=== PATIENT | female | born 1945 | race Hispanic/Latino ===

== ENCOUNTER 2019-01-14 14:22 | Emergency (ER) | payer MEDICAID, MEDICARE ==
[~2019-01-14] VITALS: Ht 149.9 cm; Wt 97.5 kg
[~2019-01-14 14:22] MED LIST: ASPIRIN LOW DOS81 MG PO; TRAMADOL HCL50 M1 PO; Z.0.DEXILANT60 MG PO; Z.0.GABAPENTIN600 MG PO; Z.0.LOSARTAN POTAS10 PO; Z.0.METOPROLOL TART2 PO; Z.0.SIMVASTATIN40 MG PO
--- OUTSIDE RECORDS SUMMARY | 2019-01-14 14:28 | XMS REPORT | Summary of Care ---
Author Author [facility] Primary Care [facility] Organization [facility] Address Unknown Phone Unavailable Encounter HQ Phu(FIN) [id number] Date(s): 01/20/18 - 01/21/18 [facility] [address], [address] [place], [place] [address]- [phone] Vital Signs No data available for this section Problem List Condition Effective Dates Status Health Status Informant Allergic Active rhinitis(Confirmed) Bilateral chronic Active knee pain(Confirmed) Benign essential 02/01/13 Active hypertension(Confirm ed)1 CAD (coronary artery Active disease)(Confirmed) Calcaneal spur2 08/15/13 Active Back pain, Active chronic(Confirmed) 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)3 Bilateral Active claudication of lower limb(Confirmed) Depression, Active major(Confirmed) Diabetes mellitus Active type 2, controlled, without complications(Confir med) Esophageal Active spasm(Confirmed) Drug induced Active constipation(Confirm ed) Sebaceous Active cyst(Confirmed) Reflux Active esophagitis(Confirme d) Medicare annual Active wellness visit, subsequent(Confirmed ) Mixed 02/01/13 Active hyperlipidemia(Confi rmed)4 Morbid 01/30/15 Active obesity(Confirmed)5 Grief(Confirmed) Active Polyarthralgia(Confi Active rmed) Osteoarthritis of 02/01/13 Active both knees(Confirmed)6 Osteopenia7 02/15/13 Active Osteoporosis(Confirm Active ed) Peripheral edema8 02/01/13 Active Peripheral Active neuropathy(Confirmed ) S/P PTCA Active (percutaneous transluminal coronary angioplasty)(Confirm ed) Screening for breast Active cancer(Confirmed) Seasonal allergic Active rhinitis(Confirmed) Left shoulder Active pain(Confirmed) Spinal stenosis of 02/01/13 Active lumbar region(Confirmed)9 Stricture of 05/16/13 Active esophagus(Confirmed) 10 Temporomandibular Active joint disorder (TMJ)(Confirmed) Encounter for Active immunization(Confirm ed) 1Data migrated from [employer] on 02/02/15. 2Data migrated from [employer] on 02/02/15. 3Data migrated from [employer] on 02/02/15. 4Data migrated from [employer] on 02/02/15. 5Data migrated from [employer] on 03/13/15. 6Data migrated from [employer] on 02/02/15. 7Data migrated from [employer] on 02/02/15. 8Data migrated from [employer] on 02/02/15. 9Data migrated from [employer] on 02/02/15. 10Data migrated from [employer] on 02/02/15. Allergies, Adverse Reactions, Alerts Substance Reaction Severity Status angiotensin converting patient cannot remember reaction Active enzyme inhibitors1, 2 gabapentin made her feel bad Active 1Data migrated from [employer] on 04/05/15. Originally documented as BRITT INHIBITORS. Does not remember 2Data migrated from [employer] on 04/04/15. Originally documented as BRITT INHIBITORS. Does not remember Medications No data available for this section Results No data available for this section Immunizations Given and Recorded Vaccine Date Status Refusal Reason influenza virus vaccine, inactivated 04/28/17 Given influenza virus vaccine, inactivated 07/03/16 Given influenza virus vaccine, inactivated 06/05/15 Given influenza virus vaccine, inactivated1 07/05/14 Given influenza virus vaccine, inactivated2 07/26/13 Given Hx influenza vaccine-unspecified3 05/10/14 Given pneumococcal 23-valent vaccine4 10/18/13 Given 1Result Comment: fluzone high dose [[id number]]. Migrated from OBS ; Data migrated from [employer] on 10/08/2015. 2Result Comment: fluzone (>3 yrs.) [[id number]]. Migrated from OBS ; Data migrated from [employer] on 10/08/2015. 3Result Comment: done. Migrated from OBS ; Data migrated from [employer] on 10/08/2015. 4Result Comment: pneumovax 23 [cvx33]. Migrated from OBS VIS: Pneumovax 23: 06/11/09 ; Data migrated from [employer] on 10/08/2015. Procedures Procedure Date Related Diagnosis Body Site Status Myocardial perfusion scan1 01/12/17 Completed Esophagogastroduodenoscopy2 12/28/16 Completed Screening mammography3 12/04/16 Completed Esophagogastroduodenoscopy4 11/10/16 Completed Excision of mass from thigh 10/09/16 Completed Bone density scan5 05/02/15 Completed Esophageal motility study6 06/06/14 Completed Esophagogastroduodenoscopy7 01/03/14 Completed Colonoscopy 2013 Completed Arthroscopy of knee 07/11/13 Completed Cardiac catheterization Completed Cholecystectomy Completed Stevo fundoplication Completed PTCA - Percutaneous transluminal coronary Completed angioplasty8 Radiofrequency ablation of nerve root of Completed lumbar spine using fluoroscopic guidance Repair of rectovaginal fistula Completed Suspension of bladder Completed 1normal 2Esophagitis, nutcracker esophagus 3IMPRESSION: BENIGN There is no mammographic evidence of malignancy. A 1 year screening mammogram i s recommended. 4schatzki's ring was dilated, nonerozive gastritis, diminutive hiatal hernia 5IMPRESSION: 1. Bone mineral density of the lumbar spine is within normal limits. There is in terval increase in density. 2. Bone mineral density of the left hip is consistent with osteopenia and increa sed fracture risk. There is interval increase in density. 6Esophageal spasm c/w Nutcracker esophagus 7hiatal hernia, stenotic upper esophageal stricture s/p dilatation [id number] Social History Social History Type Response Substance Abuse Use: None. Exercise Exercise type: none. Alcohol Past, Type Liquor. Frequency: 1-2 times per year. Smoking Status Never smoker; Exposure to Tobacco Smoke None; Cigarette Smoking Last 365 Days No; Reg Smoking Cessation Counseling Yes entered on: 12/02/17 Assessment and Plan No data available for this section
--- OUTSIDE RECORDS SUMMARY | 2019-01-14 14:28 | XMS REPORT | Summary of Care ---
Author Author [facility] Primary [facility] Organization [facility] Address Unknown Phone Unavailable Encounter HQ Soto_erwin(FIN) [id number] Date(s): 05/17/18 - 05/18/18 [facility] [address] [place] [address]- Vital Signs No data available for this section Problem List Condition Effective Dates Status Health Status Informant Allergic Active rhinitis(Confirmed) Bilateral chronic Active knee pain(Confirmed) Benign essential 02/01/13 Active hypertension(Confirm ed)1 CAD (coronary artery Active disease)(Confirmed) Back pain, Active chronic(Confirmed) 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)2 Bilateral Active claudication of lower limb(Confirmed) Acute Active nasopharyngitis(Conf irmed) Depression, Active major(Confirmed) Diabetes mellitus Active type 2, controlled, without complications(Confir med) Esophageal Active spasm(Confirmed) Drug induced Active constipation(Confirm ed) Reflux Active esophagitis(Confirme d) Headache(Confirmed) Active Medicare annual Active wellness visit, subsequent(Confirmed ) Mixed 02/01/13 Active hyperlipidemia(Confi rmed)3 Morbid 01/30/15 Active obesity(Confirmed)4 Polyarthralgia(Confi Active rmed) Osteoarthritis of 02/01/13 Active both knees(Confirmed)5 Osteopenia6 02/15/13 Active Osteoporosis(Confirm Active ed) Peripheral edema7 02/01/13 Active Peripheral Active neuropathy(Confirmed ) RAD (reactive airway Active disease)(Confirmed) S/P PTCA Active (percutaneous transluminal coronary angioplasty)(Confirm ed) Screening for breast Active cancer(Confirmed) Seasonal allergic Active rhinitis(Confirmed) Left shoulder Active pain(Confirmed) Spinal stenosis of 02/01/13 Active lumbar region(Confirmed)8 Stricture of 05/16/13 Active esophagus(Confirmed) 9 Temporomandibular Active joint disorder (TMJ)(Confirmed) Encounter for Active immunization(Confirm ed) 1Data migrated from [employer] on 02/02/15. 2Data migrated from [employer] on 02/02/15. 3Data migrated from [employer] on 02/02/15. 4Data migrated from [employer] on 03/13/15. 5Data migrated from [employer] on 02/02/15. 6Data migrated from [employer] on 02/02/15. 7Data migrated from [employer] on 02/02/15. 8Data migrated from [employer] on 02/02/15. 9Data migrated from [employer] on 02/02/15. Allergies, Adverse Reactions, Alerts Substance Reaction Severity Status angiotensin converting patient cannot remember reaction Active enzyme inhibitors1, 2 gabapentin made her feel bad Active 1Data migrated from [employer] on 04/05/15. Originally documented as BRITT INHIBITORS. Does not remember 2Data migrated from [employer] on 04/04/15. Originally documented as BRITT INHIBITORS. Does not remember Medications Dexilant 60 mg oral delayed release capsule 60 mg=1 cap, PO, Daily, # 90 cap, 1 Refill(s), Pharmacy: [facility] 05 733 Start Date: 11/13/18 Stop Date: 02/10/19 Status: Ordered Dexilant 60 mg oral delayed release capsule 60 mg=1 cap, PO, Daily, # 90 cap, 1 Refill(s), Pharmacy: [facility] 05 733 Start Date: 05/17/18 Stop Date: 08/15/18 Status: Ordered DULoxetine 20 mg oral delayed release capsule =1 cap, PO, Daily, # 90 cap, 1 Refill(s), Pharmacy: [facility] [id number] Start Date: 11/13/18 Stop Date: 02/10/19 Status: Ordered DULoxetine 20 mg oral delayed release capsule 20 mg=1 cap, PO, Daily, # 90 cap, 1 Refill(s), Pharmacy: [facility] 05 733 Start Date: 05/17/18 Stop Date: 11/13/18 Status: Completed Results No data available for this section Immunizations Given and Recorded Vaccine Date Status Refusal Reason influenza virus vaccine, inactivated1 07/08/18 Given influenza virus vaccine, inactivated 04/28/17 Given influenza virus vaccine, inactivated 07/03/16 Given influenza virus vaccine, inactivated 06/05/15 Given influenza virus vaccine, inactivated2 07/05/14 Given influenza virus vaccine, inactivated3 07/26/13 Given Hx influenza vaccine-unspecified4 05/10/14 Given pneumococcal 23-valent vaccine5 10/18/13 Given 1Result Comment: Patient waited 15 min with no reaction. 2Result Comment: fluzone high dose [[id number]]. Migrated from OBS ; Data migrated from [employer] on 10/08/2015. 3Result Comment: fluzone (>3 yrs.) [[id number]]. Migrated from OBS ; Data migrated from [employer] on 10/08/2015. 4Result Comment: done. Migrated from OBS ; Data migrated from [employer] on 10/08/2015. 5Result Comment: pneumovax 23 [cvx33]. Migrated from OBS VIS: Pneumovax 23: 06/11/09 ; Data migrated from [employer] on 10/08/2015. Procedures Procedure Date Related Diagnosis Body Site Status Influenza vaccination 07/08/18 Completed Bone density scan1 02/15/18 Completed Screening mammography of bilateral breasts2 02/15/18 Completed Diabetic retinal eye exam3 11/2017 Completed Myocardial perfusion scan4 01/12/17 Completed Esophagogastroduodenoscopy5 12/28/16 Completed Screening mammography6 12/04/16 Completed Esophagogastroduodenoscopy7 11/10/16 Completed Excision of mass from thigh 10/09/16 Completed Bone density scan8 05/02/15 Completed Esophageal motility study9 06/06/14 Completed Euxsrafqixncbccrdnhafcnerw77 01/03/14 Completed Colonoscopy 2013 Completed Arthroscopy of knee 07/11/13 Completed Pneumococcal efppydzckps40 10/17/12 Completed Cardiac catheterization Completed Cholecystectomy Completed Stevo fundoplication Completed PTCA - Percutaneous transluminal coronary Completed dmpmzhqdipk85 Radiofrequency ablation of nerve root of Completed lumbar spine using fluoroscopic guidance Repair of rectovaginal fistula Completed Suspension of bladder Completed 1IMPRESSION: 1. Osteopenia of the left femoral neck. 2. Normal bone mineral density of the total left hip. 3. Normal bone mineral density of the lumbar spine. 2IMPRESSION: BENIGN RECOMMENDATION:There is no mammographic evidence of malignancy. A 1 year screeni ng mammogram is recommended.(02/16/2019) 3[facility] 4normal 5Esophagitis, nutcracker esophagus 6IMPRESSION: BENIGN There is no mammographic evidence of malignancy. A 1 year screening mammogram i s recommended. 7schatzki's ring was dilated, nonerozive gastritis, diminutive hiatal hernia 8IMPRESSION: 1. Bone mineral density of the lumbar spine is within normal limits. There is in terval increase in density. 2. Bone mineral density of the left hip is consistent with osteopenia and increa sed fracture risk. There is interval increase in density. 9Esophageal spasm c/w Nutcracker esophagus 10hiatal hernia, stenotic upper esophageal stricture s/p dilatation 11Pneumovax [id number] Social History Social History Type Response Substance Abuse Use: None. Exercise Exercise type: none. Alcohol Past, Type Liquor. Frequency: 1-2 times per year. Smoking Status Never smoker; Exposure to Tobacco Smoke None; Cigarette Smoking Last 365 Days No; Reg Smoking Cessation Counseling Yes entered on: 07/08/18 Assessment and Plan No data available for this section
--- OUTSIDE RECORDS SUMMARY | 2019-01-14 14:28 | XMS REPORT | Summary of Care ---
Author Author [facility] Organization [facility] Address Unknown Phone Unavailable Encounter HQ Phu(FIN) [id number] Date(s): 02/16/18 - 02/16/18 [facility] [address], [address] [place] [address] [phone] Discharge Disposition: Home or Self Care Attending Physician: Emeli Torres MD Vital Signs Most recent to 1 oldest [Reference Range]: Height 152.4 cm (02/16/18 1:58 PM) Temperature Oral 97.5 DegF [96.4-99.1 DegF] (02/16/18 1:58 PM) Blood Pressure 135/89 mmHg [90-140/60-90 mmHg] (02/16/18 1:58 PM) Respiratory Rate 16 BRMIN [14-20 BRMIN] (02/16/18 1:58 PM) Peripheral Pulse 75 bpm Rate [60-100 bpm] (02/16/18 1:58 PM) Weight 90.682 kg (02/16/18 1:58 PM) Body Mass Index 39.04 m2 (02/16/18 1:58 PM) Problem List Condition Effective Dates Status Health Status Informant Bilateral chronic Active knee pain(Confirmed) Benign essential 02/01/13 Active hypertension(Confirm ed)1 CAD (coronary artery Active disease)(Confirmed) Back pain, Active chronic(Confirmed) 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 Does not remember Medications Cheratussin AC oral syrup 5 ml, PO, Q6H, PRN for cough and congestion, # 120 mL, 0 Refill(s) Start Date: 02/16/18 Stop Date: 02/16/19 Status: Ordered ProAir HFA 90 mcg/inh inhalation aerosol with adapter 2 puff, INHALER, Q6H, PRN wheezing, coughing, or shortness of breath, # 1 ea, 0 Refill(s), [id number] Start Date: 02/16/18 Stop Date: 02/16/18 Status: Discontinued Ventolin HFA 90 mcg/inh inhalation aerosol with adapter 2 puff, INHALER, Q6H, PRN wheezing, coughing, or shortness of breath, # 1 ea, 0 Refill(s), called to pharmacy Start Date: 02/16/18 Status: Ordered Results No data available for this section Immunizations Given and Recorded Vaccine Date Status Refusal Reason influenza virus vaccine, inactivated 04/28/17 Given influenza virus vaccine, inactivated 07/03/16 Given influenza virus vaccine, inactivated 06/05/15 Given influenza virus vaccine, inactivated1 07/05/14 Given influenza virus vaccine, inactivated2 07/26/13 Given Hx influenza vaccine-unspecified3 05/10/14 Given pneumococcal 23-valent vaccine4 10/18/13 Given 1Result Comment: fluzone high dose [[id number]]. Migrated from OBS ; Data migrated from [employer] on 10/08/2015. 2Result Comment: fluzone (>3 yrs.) [[id number]]. Migrated from OBS ; Data migrated from [employer] on 10/08/2015. 3Result Comment: done. Migrated from OBS ; Data migrated from [employer] on 10/08/2015. 4Result Comment: pneumovax 23 [cvx33]. Migrated from OBS VIS: Pneumovax 23: 06/11/09 ; Data migrated from [employer] on 10/08/2015. Procedures Procedure Date Related Diagnosis Body Site Status Bone density scan1 02/15/18 Completed Screening mammography of bilateral breasts2 02/15/18 Completed Diabetic retinal eye exam3 11/2017 Completed Influenza vaccination 04/28/17 Completed Myocardial perfusion scan4 01/12/17 Completed Esophagogastroduodenoscopy5 12/28/16 Completed Screening mammography6 12/04/16 Completed Esophagogastroduodenoscopy7 11/10/16 Completed Excision of mass from thigh 10/09/16 Completed Bone density scan8 05/02/15 Completed Esophageal motility study9 06/06/14 Completed Ykslbiezubapezlgnyybyvvidq62 01/03/14 Completed Colonoscopy 2013 Completed Arthroscopy of knee 07/11/13 Completed Pneumococcal uvcrvdceufl36 10/17/12 Completed Cardiac catheterization Completed Cholecystectomy Completed Stevo fundoplication Completed PTCA - Percutaneous transluminal coronary Completed qedyvzafhsz86 Radiofrequency ablation of nerve root of Completed [...] stenotic upper esophageal stricture s/p dilatation 11Pneumovax [id number] Social History Social History Type Response Substance Abuse Use: None. Exercise Exercise type: none. Alcohol Past, Type Liquor. Frequency: 1-2 times per year. Smoking Status Never smoker; Exposure to Tobacco Smoke None; Cigarette Smoking Last 365 Days No; Reg Smoking Cessation Counseling Yes entered on: 02/16/18 Assessment and Plan No data available for this section
--- OUTSIDE RECORDS SUMMARY | 2019-01-14 14:28 | XMS REPORT | Summary of Care ---
Author Author [facility] Primary Care [facility] Organization [facility] Address Unknown Phone Unavailable Encounter HQ Phu(FIN) [id number] Date(s): 01/20/18 - 01/21/18 [facility] [address], [address] [place], [place] [address]- [phone] Vital Signs No data available for this [...] 10/18/13 Given 1Result Comment: fluzone high dose [[id number]]. Migrated from OBS ; Data migrated from [employer] on 10/08/2015. 2Result Comment: fluzone (>3 yrs.) [[id number]]. Migrated from OBS ; Data migrated from [...] hernia, stenotic upper esophageal stricture s/p dilatation 43736 Social History Social History Type Response Substance Abuse Use: None. Exercise Exercise type: none. Alcohol Past, Type Liquor. Frequency: 1-2 times per year. Smoking Status Never smoker; Exposure to Tobacco Smoke None; Cigarette Smoking Last 365 Days No; Reg Smoking Cessation Counseling Yes entered on: 12/02/17 Assessment and Plan No data available for this section
--- OUTSIDE RECORDS SUMMARY | 2019-01-14 14:28 | XMS REPORT | Summary of Care ---
Author Author [facility] Organization [facility] Address Unknown Phone Unavailable Encounter HQ Phu(FIN) [id number] Date(s): 12/02/17 - 12/02/17 [facility] [address], [address] [place] [address]- [phone] Discharge Disposition: Home or Self Care Attending Physician: Emeli Torres MD Vital Signs Most recent to 1 oldest [Reference Range]: Height 149.86 cm (12/02/17 9:55 AM) Temperature Oral 98.7 DegF [96.4-99.1 DegF] (12/02/17 9:55 AM) Blood Pressure 131/73 mmHg [90-140/60-90 mmHg] (12/02/17 9:55 AM) Respiratory Rate 16 BRMIN [14-20 BRMIN] (12/02/17 9:55 AM) Peripheral Pulse 57 bpm Rate [60-100 bpm] *LOW* (12/02/17 9:55 AM) Weight 93.239 kg (12/02/17 9:55 AM) Body Mass Index 41.52 m2 (12/02/17 9:55 AM) Problem List Condition Effective Dates Status Health [...] as BRITT INHIBITORS. Does not remember Medications Home Medication Turmero (K-75), Refill(s) 0 Start Date: 12/02/17 Status: Ordered Results No data available for this section Immunizations Given and Recorded Vaccine Date Status Refusal Reason influenza virus vaccine, inactivated 04/28/17 Given influenza virus vaccine, inactivated 07/03/16 Given influenza virus vaccine, inactivated 06/05/15 Given influenza virus vaccine, inactivated1 07/05/14 Given influenza virus vaccine, inactivated2 07/26/13 Given Hx influenza vaccine-unspecified3 05/10/14 Given pneumococcal 23-valent vaccine4 10/18/13 Given 1Result Comment: fluzone high dose [[id number]]. Migrated from OBS ; Data migrated from [employer] on 10/08/2015. 2Result Comment: fluzone (>3 yrs.) [[id number]]. Migrated from OBS ; Data migrated from [employer] on 10/08/2015. 3Result Comment: done. Migrated from OBS ; Data migrated from [employer] on 10/08/2015. 4Result Comment: pneumovax 23 [cvx33]. Migrated from OBS VIS: Pneumovax 23: 06/11/09 ; Data migrated from [employer] on 10/08/2015. Procedures Procedure Date Related Diagnosis [...] hernia, stenotic upper esophageal stricture s/p dilatation 52633 Social History Social History Type Response Substance Abuse Use: None. Exercise Exercise type: none. Alcohol Past, Type Liquor. Frequency: 1-2 times per year. Smoking Status Never smoker; Exposure to Tobacco Smoke None; Cigarette Smoking Last 365 Days No; Reg Smoking Cessation Counseling Yes entered on: 12/02/17 Assessment and Plan No data available for this section
--- OUTSIDE RECORDS SUMMARY | 2019-01-14 14:28 | XMS REPORT | Summary of Care ---
Author Author [facility] Primary Care [facility] Organization [facility] Address Unknown Phone Unavailable Encounter HQ Phu(FIN) [id number] Date(s): 01/25/18 - 01/26/18 [facility] [address], [address] [place], [place] [address]- [phone] Vital Signs No data available for this [...] as BRITT INHIBITORS. Does not remember Medications Metoprolol Tartrate 25 mg oral tablet 25 mg=1 tab, PO, Daily, # 90 tab, 1 Refill(s), Pharmacy: [facility] 05 [id number] Start Date: 01/25/18 Stop Date: 04/25/18 Status: Ordered Results No data available for this section Immunizations Given and Recorded Vaccine Date Status Refusal Reason influenza virus vaccine, inactivated 04/28/17 Given influenza virus vaccine, inactivated 07/03/16 Given influenza virus vaccine, inactivated 06/05/15 Given influenza virus vaccine, inactivated1 07/05/14 Given influenza virus vaccine, inactivated2 07/26/13 Given Hx influenza vaccine-unspecified3 05/10/14 Given pneumococcal 23-valent vaccine4 10/18/13 Given 1Result Comment: fluzone high dose [[id number]]. Migrated from OBS ; Data migrated from [employer] on 10/08/2015. 2Result Comment: fluzone (>3 yrs.) [[id number]]. Migrated from OBS ; Data migrated from [employer] on 10/08/2015. 3Result Comment: done. Migrated from OBS ; Data migrated from [employer] on 10/08/2015. 4Result Comment: pneumovax 23 [cvx33]. Migrated from OBS VIS: Pneumovax 23: 06/11/09 ; Data migrated from [employer] on 10/08/2015. Procedures Procedure Date Related Diagnosis [...] hernia, stenotic upper esophageal stricture s/p dilatation 34093 Social History Social History Type Response Substance Abuse Use: None. Exercise Exercise type: none. Alcohol Past, Type Liquor. Frequency: 1-2 times per year. Smoking Status Never smoker; Exposure to Tobacco Smoke None; Cigarette Smoking Last 365 Days No; Reg Smoking Cessation Counseling Yes entered on: 12/02/17 Assessment and Plan No data available for this section
--- OUTSIDE RECORDS SUMMARY | 2019-01-14 14:28 | XMS REPORT | Summary of Care ---
Author Author [facility] Organization [facility] Address Unknown Phone Unavailable Encounter HQ Soto_erwin(FIN) [id number] Date(s): 07/22/17 - 07/22/17 [facility] [address], [address] [place] [address]- [phone] Discharge Disposition: Home or Self Care Attending Physician: Emeli Torres MD Vital Signs Most recent to 1 2 oldest [Reference Range]: Height 149.86 cm (07/22/17 10:03 AM) Temperature Oral 97.3 DegF [96.4-99.1 DegF] (07/22/17 10:03 AM) Blood Pressure 138/85 mmHg 146/94 mmHg [90-140/60-90 mmHg] (07/22/17 10:45 AM) *HI* (07/22/17 10:03 AM) Respiratory Rate 16 BRMIN [14-20 BRMIN] (07/22/17 10:03 AM) Peripheral Pulse 74 bpm Rate [60-100 bpm] (07/22/17 10:03 AM) Weight 97.273 kg (07/22/17 10:03 AM) Body Mass Index 43.31 m2 (07/22/17 10:03 AM) Problem List Condition Effective Dates Status Health Status Informant Acute upper Active respiratory infection(Confirmed) Bilateral chronic Active knee pain(Confirmed) Upper back pain on Active right side(Confirmed) Benign essential 02/01/13 Active hypertension(Confirm ed)1 CAD (coronary artery Active disease)(Confirmed) Calcaneal spur2 08/15/13 Active Back pain, Active chronic(Confirmed) 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 Bilateral Active claudication of lower limb(Confirmed) Depression, Active major(Confirmed) Diabetes mellitus Active type 2, controlled, without complications(Confir med) Esophageal Active spasm(Confirmed) Drug induced Active constipation(Confirm ed) Sebaceous Active cyst(Confirmed) Reflux Active esophagitis(Confirme d) Medicare annual Active wellness visit, subsequent(Confirmed ) Mixed 02/01/13 Active hyperlipidemia(Confi rmed)4 Morbid 01/30/15 Active obesity(Confirmed)5 Grief(Confirmed) Active Polyarthralgia(Confi Active rmed) Osteoarthritis of 02/01/13 Active both knees(Confirmed)6 Osteopenia7 02/15/13 Active Peripheral edema8 02/01/13 Active Peripheral Active neuropathy(Confirmed ) S/P PTCA Active (percutaneous transluminal coronary angioplasty)(Confirm ed) Seasonal allergic Active rhinitis(Confirmed) Left shoulder Active [...] as [employer]. Does not remember Medications DULoxetine 20 mg oral delayed release capsule 20 mg=1 cap, PO, Daily, # 30 cap, 3 Refill(s), Pharmacy: [facility] [id number], Dose decreased Start Date: 07/22/17 Status: Ordered Lyrica 300 mg oral capsule 300 mg=1 cap, PO, Daily, # 90 cap, 1 Refill(s) Start Date: 07/22/17 Status: Ordered Results No data available for this section Immunizations Given and Recorded Vaccine Date Status Refusal Reason influenza virus vaccine, inactivated 04/28/17 Given influenza virus vaccine, inactivated 07/03/16 Given influenza virus vaccine, inactivated 06/05/15 Given influenza virus vaccine, inactivated1 07/05/14 Given influenza virus vaccine, inactivated2 07/26/13 Given Hx influenza vaccine-unspecified3 05/10/14 Given pneumococcal 23-valent vaccine4 10/18/13 Given 1Result Comment: fluzone high dose [[id number]]. Migrated from OBS ; Data migrated from [employer] on 10/08/2015. 2Result Comment: fluzone (>3 yrs.) [[id number]]. Migrated from OBS ; Data migrated from [employer] on 10/08/2015. 3Result Comment: done. Migrated from OBS ; Data migrated from [employer] on 10/08/2015. 4Result Comment: pneumovax 23 [[id number]]. Migrated from OBS VIS: Pneumovax 23: 06/11/09 ; Data migrated from [employer] on 10/08/2015. Procedures Procedure Date Related Diagnosis Body Site Myocardial perfusion scan1 01/12/17 Esophagogastroduodenoscopy2 12/28/16 Screening mammography3 12/04/16 Esophagogastroduodenoscopy4 11/10/16 Excision of mass from thigh 10/09/16 Bone density scan5 05/02/15 Esophageal motility study6 06/06/14 Esophagogastroduodenoscopy7 01/03/14 Colonoscopy 2013 Arthroscopy of knee 07/11/13 Cardiac catheterization Cholecystectomy Stevo fundoplication PTCA - Percutaneous transluminal coronary angioplasty8 Radiofrequency ablation of nerve root of lumbar spine using fluoroscopic guidance Repair of rectovaginal fistula Suspension of bladder 1normal 2Esophagitis, nutcracker esophagus 3IMPRESSION: BENIGN There [...] hernia, stenotic upper esophageal stricture s/p dilatation [id number] Social History Social History Type Response Substance Abuse Use: None. Exercise Exercise type: none. Alcohol Past, Type Liquor. Frequency: 1-2 times per year. Smoking Status Never smoker; Exposure to Tobacco Smoke None; Cigarette Smoking Last 365 Days No; Reg Smoking Cessation Counseling Yes Assessment and Plan No data available for this section
--- OUTSIDE RECORDS SUMMARY | 2019-01-14 14:28 | XMS REPORT | Summary of Care ---
Author Author [facility] Organization [facility] Address Unknown Phone Unavailable Encounter HQ Phu(FIN) [id number] Date(s): 02/15/18 - 02/15/18 [facility] [address] [place] [address]- [phone] Discharge Disposition: Home or Self Care Attending Physician: Emeli Torres MD Referring Physician: Emeli Torres MD Vital Signs No data available for this [...] 10/18/13 Given 1Result Comment: fluzone high dose [[id number]]. Migrated from OBS ; Data migrated from [employer] on 10/08/2015. 2Result Comment: fluzone (>3 yrs.) [[id number]]. Migrated from OBS ; Data migrated from [...] 05/02/15 Completed Esophageal motility study9 06/06/14 Completed [id number] 01/03/14 Completed Colonoscopy 2013 Completed Arthroscopy of knee 07/11/13 Completed Pneumococcal [id number] 10/17/12 Completed Cardiac catheterization Completed Cholecystectomy Completed Stevo fundoplication Completed PTCA - Percutaneous transluminal coronary Completed [id number] Radiofrequency ablation of nerve root of Completed [...] stenotic upper esophageal stricture s/p dilatation 11Pneumovax [id number] Social History Social History Type Response Substance Abuse Use: None. Exercise Exercise type: none. Alcohol Past, Type Liquor. Frequency: 1-2 times per year. Smoking Status Never smoker; Exposure to Tobacco Smoke None; Cigarette Smoking Last 365 Days No; Reg Smoking Cessation Counseling Yes entered on: 02/16/18 Assessment and Plan No data available for this section
--- OUTSIDE RECORDS SUMMARY | 2019-01-14 14:28 | XMS REPORT | Summary of Care ---
Author Author [facility] Care [facility] Organization [facility] Address Unknown Phone Unavailable Care Team Providers Care Transaction Manager Name Role Phone Emeli Torres PCP Encounter HQ Izabellar_erwin(FIN) [id number] Date(s): 01/09/19 - 01/09/19 [facility] [address] [place] [address]- Discharge Disposition: Home or Self Care Attending Physician: Emeli Torres MD Vital Signs Most recent to 1 oldest [Reference Range]: Height 152.4 cm (01/09/19 2:00 PM) Temperature Oral 97.8 DegF [96.4-99.1 DegF] (01/09/19 2:00 PM) Blood Pressure 148/81 mmHg [90-140/60-90 mmHg] *HI* (01/09/19 2:00 PM) Respiratory Rate 16 BRMIN [14-20 BRMIN] (01/09/19 2:00 PM) Peripheral Pulse 64 bpm Rate [60-100 bpm] (01/09/19 2:00 PM) Weight 98.864 kg (01/09/19 2:00 PM) Body Mass Index 42.57 m2 (01/09/19 2:00 PM) Problem List Condition Effective Dates Status Health Status Informant Allergic Active rhinitis(Confirmed) Benign essential 02/01/13 Active hypertension(Confirm ed)1 CAD (coronary artery Active disease)(Confirmed) Back pain, Active chronic(Confirmed) 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)2 Depression, Active major(Confirmed) Diabetes mellitus Active type 2, controlled, without complications(Confir med) Esophageal Active spasm(Confirmed) Tendinopathy of left Active shoulder(Confirmed) Drug induced Active constipation(Confirm ed) Reflux Active esophagitis(Confirme d) Medicare annual Active wellness visit, subsequent(Confirmed ) Mixed 02/01/13 Active hyperlipidemia(Confi rmed)3 Morbid 01/30/15 Active obesity(Confirmed)4 Osteoarthritis of 02/01/13 Active both knees(Confirmed)5 Osteopenia6 02/15/13 Active Osteoporosis(Confirm Active ed) Peripheral Active neuropathy(Confirmed ) RAD (reactive airway Active disease)(Confirmed) S/P PTCA Active (percutaneous transluminal coronary angioplasty)(Confirm ed) Screening for breast Active cancer(Confirmed) Seasonal allergic Active rhinitis(Confirmed) Spinal stenosis of 02/01/13 Active lumbar region(Confirmed)7 Stricture of 05/16/13 Active esophagus(Confirmed) 8 Encounter for Active immunization(Confirm ed) 1Data migrated from [employer] on 02/02/15. 2Data migrated from [employer] on 02/02/15. 3Data migrated from [employer] on 02/02/15. 4Data migrated from [employer] on 03/13/15. 5Data migrated from [employer] on 02/02/15. 6Data migrated from [employer] on 02/02/15. 7Data migrated from [employer] on 02/02/15. 8Data migrated from [employer] on 02/02/15. Allergies, Adverse Reactions, Alerts Substance Reaction Severity Status angiotensin converting patient cannot remember reaction Active enzyme inhibitors1, 2 gabapentin made her feel bad Active 1Data migrated from [employer] on 04/05/15. Originally documented as [employer]. Does not remember 2Data migrated from [employer] on 04/04/15. Originally documented as [employer]. Does not remember Medications diclofenac sodium 75 mg oral enteric coated, delayed-release tablet 75 mg=1 tab, PO, BID, PRN Pain, # 40 tab, 0 Refill(s), Pharmacy: [id number] Start Date: 01/11/19 Status: Ordered Voltaren Topical 1% topical gel 4 gm, TOP, TID, PRN for pain, # 100 gm, 1 Refill(s), Pharmacy: [id number] Start Date: 01/09/19 Status: Ordered Results No data available for [...] no reaction. 2Result Comment: fluzone high dose [[id number]]. Migrated from OBS ; Data migrated from [employer] on 10/08/2015. 3Result Comment: fluzone (>3 yrs.) [[id number]]. Migrated from OBS ; Data migrated from [...] 05/02/15 Completed Esophageal motility study9 06/06/14 Completed [id number] 01/03/14 Completed Colonoscopy 2013 Completed Arthroscopy of knee 07/11/13 Completed Pneumococcal [id number] 10/17/12 Completed Cardiac catheterization Completed Cholecystectomy Completed Stevo fundoplication Completed PTCA - Percutaneous transluminal coronary Completed [id number] Radiofrequency ablation of nerve root of Completed [...] stenotic upper esophageal stricture s/p dilatation 11Pneumovax [id number] Social History Social History Type Response Substance Abuse Use: None. Exercise Exercise type: none. Alcohol Past, Type Liquor. Frequency: 1-2 times per year. Smoking Status Never smoker; Exposure to Tobacco Smoke None; Cigarette Smoking Last 365 Days No; Reg Smoking Cessation Counseling Yes entered on: 01/09/19 Assessment and Plan No data available for this section
--- OUTSIDE RECORDS SUMMARY | 2019-01-14 14:28 | XMS REPORT | Continuity of Care Document ---
Author Author [facility] Interface Address Unknown Phone Unavailable Problems Problem Status Onset Date Classification Date Reported Comments Source M81.0 Active 01/20/2018 [facility] ROUTINE Active 12/18/2017 [facility] UNK Active 10/29/2016 [facility] DX: ROUTINE SCREENING Active 10/28/2016 [facility] SCREENING Active 10/14/2015 [facility] Z12.31 - ENCNTR SCREEN MAMMOGRAM FOR MA Active 10/11/2015 [facility] [place] Discharge Diagnosis: Generalized headache 06/09/2015 06/12/2015 [facility] Discharge Diagnosis: Hypertension 06/09/2015 06/12/2015 [facility] BP Active 06/09/2015 [facility] 722.52 - LUMB/LUMBOSAC D Active 05/27/2015 [facility] [place] OSTEO Active 05/02/2015 [facility] Morbid obesity<sup>5</sup> Active 01/30/2015 Problem 01/29/2018 Data migrated from [employer] on 03/13/15. [facility] Morbid obesity<sup>19</sup> Active 01/30/2015 Problem 05/05/2015 Data migrated from [employer] on 03/13/15. [facility] Temporomandibular xffuq-gkan-khxiwnuhaij syndrome<sup>29</sup> Active 01/30/2015 Problem 05/05/2015 Data migrated from [employer] on 03/13/15. [facility] Morbid obesity<sup>4</sup> Active 01/30/2015 Problem 01/11/2019 Data migrated from [employer] on 03/13/15. [facility] Morbid obesity<sup>8</sup> Active 01/30/2015 Problem 10/28/2015 Data migrated from [employer] on 03/13/15. [facility] [place] Morbid obesity<sup>6</sup> Active 01/30/2015 Problem 11/27/2016 Data migrated from [employer] on 03/13/15. [facility] Acute bronchitis<sup>2, 3</sup> Active 10/04/2014 Problem 05/05/2015 Data migrated from [employer] on 02/05/15. [facility] ABDOMINAL PAIN Active 07/18/2014 [facility] Abdominal pain<sup>1</sup> Active 07/09/2014 Problem 05/05/2015 Data migrated from [employer] on 02/02/15. [facility] Low back pain<sup>17</sup> Active 07/05/2014 Problem 05/05/2015 Data migrated from [employer] on 02/02/15. [facility] 401.9/V65.3/787.20/530.81 Active 06/04/2014 [facility] Bereavement<sup>9</sup> Active 05/10/2014 Problem 05/05/2015 Data migrated from [employer] on 02/02/15. [facility] Bereavement<sup>3</sup> Resolved 05/10/2014 Problem 10/28/2015 Data migrated from [employer] on 02/02/15. [facility], [facility] [place] V65.3/401.9/530.81/787.20 Active 12/27/2013 [facility] Hip pain<sup>15</sup> Active 12/15/2013 Problem 05/05/2015 Data migrated from [employer] on 02/02/15. [facility] V65.3 DIETARY COUNSELING 401.9 BP (HIGH Active 12/07/2013 [facility] Calcaneal spur<sup>2</sup> Active 08/15/2013 Problem 01/29/2018 Data migrated from [employer] on 02/02/15. [facility] Calcaneal spur<sup>10</sup> Active 08/15/2013 Problem 05/05/2015 Data migrated from [employer] on 02/02/15. [facility] Calcaneal spur<sup>4</sup> Active 08/15/2013 Problem 10/28/2015 Data migrated from [employer] on 02/02/15. [facility], [facility] [place] Osteoarthritis of foot joint<sup>20</sup> Active 07/26/2013 Problem 05/05/2015 Data migrated from [employer] on 02/02/15. [facility] Stricture of esophagus<sup>10</sup> Active 05/16/2013 Problem 01/29/2018 Data migrated from [employer] on 02/02/15. [facility] Acute upper respiratory infection<sup>5</sup> Resolved 05/16/2013 Problem 05/05/2015 Data migrated from [employer] on 03/23/15. [facility] Stricture of esophagus<sup>28</sup> Active 05/16/2013 Problem 05/05/2015 Data migrated from [employer] on 02/02/15. [facility] Stricture of esophagus<sup>9</sup> Active 05/16/2013 Problem 12/26/2018 Data migrated from [employer] on 02/02/15. [facility], [facility] Stricture of esophagus<sup>13</sup> Active 05/16/2013 Problem 10/28/2015 Data migrated from [employer] on 02/02/15. [facility] [place] Stricture of esophagus<sup>11</sup> Active 05/16/2013 Problem 11/27/2016 Data migrated from [employer] on 02/02/15. [facility] Stricture of esophagus<sup>8</sup> Active 05/16/2013 Problem 01/11/2019 Data migrated from [employer] on 02/02/15. [facility] Osteopenia<sup>7</sup> Active 02/15/2013 Problem 01/29/2018 Data migrated from [employer] on 02/02/15. [facility] Osteopenia<sup>22</sup> Active 02/15/2013 Problem 05/05/2015 Data migrated from [employer] on 02/02/15. [facility] Type 2 diabetes mellitus<sup>30</sup> Active 02/15/2013 Problem 05/05/2015 Data migrated from [employer] on 02/02/15. [facility] Osteopenia<sup>6</sup> Active 02/15/2013 Problem 01/11/2019 Data migrated from [employer] on 02/02/15. [facility] Osteopenia<sup>10</sup> Active 02/15/2013 Problem 10/28/2015 Data migrated from [employer] on 02/02/15. [facility] [place] Osteopenia<sup>8</sup> Active 02/15/2013 Problem 11/27/2016 Data migrated from [employer] on 02/02/15. [facility] Benign essential hypertension<sup>1</sup> Active 02/01/2013 Problem 01/11/2019 Data migrated from [employer] on 02/02/15. [facility] Chronic nonalcoholic liver disease<sup>3</sup> Active 02/01/2013 Problem 01/29/2018 Data migrated from [employer] on 02/02/15. [facility] Mixed hyperlipidemia<sup>4</sup> Active 02/01/2013 Problem 01/29/2018 Data migrated from [employer] on 02/02/15. [facility] Osteoarthritis of both knees<sup>6</sup> Active 02/01/2013 Problem 01/29/2018 Data migrated from [employer] on 02/02/15. [facility] Peripheral edema<sup>8</sup> Active 02/01/2013 Problem 01/29/2018 Data migrated from [employer] on 02/02/15. [facility] Spinal stenosis of lumbar region<sup>9</sup> Active 02/01/2013 Problem 01/29/2018 Data migrated from [employer] on 02/02/15. [facility] Benign essential hypertension<sup>8</sup> Active 02/01/2013 Problem 05/05/2015 Data migrated from [employer] on 02/02/15. [facility] Chronic nonalcoholic liver disease<sup>12</sup> Active 02/01/2013 Problem 05/05/2015 Data migrated from [employer] on 02/02/15. [facility] Gastroesophageal reflux disease<sup>13</sup> Active 02/01/2013 Problem 05/05/2015 Data migrated from [employer] on 02/02/15. [facility] Mixed hyperlipidemia<sup>18</sup> Active 02/01/2013 Problem 05/05/2015 Data migrated from [employer] on 02/02/15. [facility] Osteoarthritis of knee<sup>21</sup> Active 02/01/2013 Problem 05/05/2015 Data migrated from [employer] on 02/02/15. [facility] Peripheral edema<sup>23</sup> Active 02/01/2013 Problem 05/05/2015 Data migrated from [employer] on 02/02/15. [facility] Peripheral nerve disease<sup>24</sup> Active 02/01/2013 Problem 05/05/2015 Data migrated from [employer] on 02/02/15. [facility] Spinal stenosis of lumbar region<sup>27</sup> Active 02/01/2013 Problem 05/05/2015 Data migrated from [employer] on 02/02/15. [facility] Chronic nonalcoholic liver disease<sup>2</sup> Active 02/01/2013 Problem 01/11/2019 Data migrated from [employer] on 02/02/15. [facility] Mixed hyperlipidemia<sup>3</sup> Active 02/01/2013 Problem 01/11/2019 Data migrated from [employer] on 02/02/15. [facility] Osteoarthritis of both knees<sup>5</sup> Active 02/01/2013 Problem 01/11/2019 Data migrated from [employer] on 02/02/15. [facility] Peripheral edema<sup>7</sup> Active 02/01/2013 Problem 12/26/2018 Data migrated from [employer] on 02/02/15. [facility] Spinal stenosis of lumbar region<sup>8</sup> Active 02/01/2013 Problem 12/26/2018 Data migrated from [employer] on 02/02/15. [facility] Benign essential hypertension<sup>2</sup> Active 02/01/2013 Problem 10/28/2015 Data migrated from [employer] on 02/02/15. [facility] [place] Chronic nonalcoholic liver disease<sup>5</sup> Active 02/01/2013 Problem 10/28/2015 Data migrated from [employer] on 02/02/15. [facility] [place] Gastroesophageal reflux disease<sup>6</sup> Active 02/01/2013 Problem 10/28/2015 Data migrated from [employer] on 02/02/15. [facility] [place] Mixed hyperlipidemia<sup>7</sup> Active 02/01/2013 Problem 10/28/2015 Data migrated from [employer] on 02/02/15. [facility] [place] Osteoarthritis of both knees<sup>9</sup> Active 02/01/2013 Problem 10/28/2015 Data migrated from [employer] on 02/02/15. [facility], [facility] [place] Peripheral edema<sup>11</sup> Active 02/01/2013 Problem 10/28/2015 Data migrated from [employer] on 02/02/15. [facility], [facility] [place] Spinal stenosis of lumbar region<sup>12</sup> Active 02/01/2013 Problem 10/28/2015 Data migrated from [employer] on 02/02/15. [facility], [facility] [place] Gastroesophageal reflux disease<sup>4</sup> Active 02/01/2013 Problem 11/27/2016 Data migrated from [employer] on 02/02/15. [facility] Mixed hyperlipidemia<sup>5</sup> Active 02/01/2013 Problem 11/27/2016 Data migrated from [employer] on 02/02/15. [facility] Osteoarthritis of both knees<sup>7</sup> Active 02/01/2013 Problem 11/27/2016 Data migrated from [employer] on 02/02/15. [facility] Peripheral edema<sup>9</sup> Active 02/01/2013 Problem 11/27/2016 Data migrated from [employer] on 02/02/15. [facility] Spinal stenosis of lumbar region<sup>10</sup> Active 02/01/2013 Problem 11/27/2016 Data migrated from [employer] on 02/02/15. [facility] Spinal stenosis of lumbar region<sup>7</sup> Active 02/01/2013 Problem 01/11/2019 Data migrated from [employer] on 02/02/15. [facility] ABD PAIN Active 07/13/2011 [facility] Allergic rhinitis Active Problem 01/11/2019 [facility] Bilateral chronic knee pain Active Problem 12/26/2018 [facility] CAD (<span ID="[id number]">Confirmed</span>) Active Problem 01/11/2019 [facility], [facility] [place] Back pain, chronic Active Problem 01/11/2019 [facility] Bilateral claudication of lower limb Active Problem 12/26/2018 [facility] Depression, major Active Problem 01/11/2019 [facility], [facility] [place] Diabetes mellitus type 2, controlled, without complications Active Problem 01/11/2019 [facility], [facility] [place] Esophageal spasm Active Problem 01/11/2019 [facility] Drug induced constipation Active Problem 01/11/2019 [facility] Sebaceous cyst Active Problem 01/29/2018 [facility] Reflux esophagitis Active Problem 01/11/2019 [facility] Medicare annual wellness visit, subsequent Active Problem 01/11/2019 [facility] Grief Active Problem 01/29/2018 [facility] Polyarthralgia Active Problem 12/26/2018 [facility] Osteoporosis Active Problem 01/11/2019 [facility] Peripheral neuropathy Active Problem 01/11/2019 [facility] [place] S/P PTCA (<span ID="[id number]">Confirmed</span>) Active Problem 01/11/2019 [facility] [place] Screening for breast cancer Active Problem 01/11/2019 [facility] Seasonal allergic rhinitis Active Problem 01/11/2019 [facility] Left shoulder pain Active Problem 12/26/2018 [facility] [place] Temporomandibular joint disorder (<span ID="[id number]">Confirmed</span>) Active Problem 12/26/2018 [facility] [place] Encounter for immunization Active Problem 01/11/2019 [facility] Acute upper respiratory infection Active Problem 07/25/2017 [facility] Upper back pain on right side Active Problem 07/25/2017 [facility] Acid reflux Active Problem 05/05/2015 [facility] [place] Back pain Active Problem 05/05/2015 [facility] [place] HTN (<span ID="[id number]">Confirmed</span>) Active Problem 05/05/2015 [facility] [place] Chest pain<sup>1</sup> Resolved Problem 12/27/2014 [id number] recurrence [facility], [facility] [place] Heart attack<sup>2</sup> Resolved Problem 12/27/2014 [id number] [facility] [place] Acute sinusitis<sup>4</sup> Resolved Problem 05/05/2015 Data migrated from [employer] on 03/22/15. [facility] Allergic rhinitis<sup>6</sup> Active Problem 05/05/2015 Data migrated from [employer] on 02/02/15. 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 [facility] Chest pain<sup>11</sup> Resolved Problem 05/05/2015 2006-no recurrence [facility] Heart attack<sup>14</sup> Resolved Problem 05/05/20152005 [facility] Acute nasopharyngitis Active Problem 12/26/2018 [facility] RAD (<span ID="[id number]">Confirmed</span>) Active Problem 01/11/2019 [facility] Medical [facility] Allergic rhinitis<sup>1</sup> Active Problem 10/28/2015 Data migrated from [employer] on 02/02/15. [facility] [place] Tendinopathy of left shoulder Active Problem 01/11/2019 [facility] Headache Active Problem 12/26/2018 [facility] Allergic urticaria Active Problem 10/28/2015 [facility] Need for prophylactic vaccination and inoculation against influenza Resolved Problem 10/28/2015 [facility] [place] Hypercholesteremia Active Problem 11/27/2016 [facility] HTN - Hypertension Active Problem 06/10/2015 [facility] [place] DIETARY SURVEIL/CONTRACTOR GENERAL ENGINEERING Active [facility] HYPERTENSION NOS Active [facility] ESOPHAGEAL REFLUX Active [facility] Datatype(DG1.4)- Active [facility] ENCNTR SCREEN MAMMOGRAM FOR MALIGNANT NE Active [facility] Medications Medication Details Route Status Patient Instructions Ordering Provider Order Date Source diclofenac sodium 75 mg oral enteric coated, delayed-release tablet 75 mg=1 tab, PO, BID, PRN Pain, # 40 tab, 0 Refill(s), Pharmacy: [facility] [id number] Active 01/11/2019 [facility] Diclofenac Sodium 0.01 MG/MG Topical Gel [Voltaren] 4 gm, TOP, TID, PRN for pain, # 100 gm, 1 Refill(s), Pharmacy: [facility] [id number] Active 01/09/2019 [facility] DULoxetine 20 mg oral delayed release capsule =1 cap, PO, Daily, # 90 cap, 1 Refill(s), Pharmacy: [facility] [id number] Active 11/13/2018 [facility] dexlansoprazole 60 MG Enteric Coated Capsule [Dexilant] 60 mg=1 cap, PO, Daily, # 90 cap, 1 Refill(s), Pharmacy: [facility] [id number] Active 11/13/2018 [facility] Hydrochlorothiazide 12.5 MG / Losartan Potassium 100 MG Oral Tablet =1 tab, PO, Daily, # 90 tab, Refill(s) 1, Pharmacy: [facility] [id number] Active 09/12/2018 [facility] DULoxetine 20 mg oral delayed release capsule 20 mg=1 cap, PO, Daily, # 90 cap, 1 Refill(s), Pharmacy: [facility] [id number] No Longer Active 05/17/2018 [facility] dexlansoprazole 60 MG Enteric Coated Capsule [Dexilant] 60 mg=1 cap, PO, Daily, # 90 cap, 1 Refill(s), Pharmacy: [facility] [id number] Active 05/17/2018 [facility] Hydrochlorothiazide 12.5 MG / Losartan Potassium 100 MG Oral Tablet =1 tab, PO, Daily, # 90 tab, Refill(s) 1, Pharmacy: [facility] [id number] No Longer Active 03/28/2018 [facility] OneTouch Ultra Blue Blood Glucose Test Strip Check blood sugar once daily., [facility] Daily, # 150 ea, Not insulin dependent, Does not use insulin pump, Last DM eval date 02/16/18, 5 Refill(s) Active 03/28/2018 [facility] pregabalin 300 MG Oral Capsule [Lyrica] 300 mg=1 cap, PO, Daily, # 90 cap, 1 Refill(s) Active 02/25/2018 [facility] Ventolin HFA 90 mcg/inh inhalation aerosol with adapter 2 puff, INHALER, Q6H, PRN wheezing, coughing, or shortness of breath, # 1 ea, 0 Refill(s), called to pharmacy Active 02/17/2018 [facility] 200 ACTUAT Albuterol 0.09 MG/ACTUAT Metered Dose Inhaler [ProAir HFA] 2 puff, INHALER, Q6H, PRN wheezing, coughing, or shortness of breath, # 1 ea, 0 Refill(s), Pharmacy: [facility] [id number] Inactive 02/16/2018 Medical [facility] Codeine Phosphate 2 MG/ML / Guaifenesin 20 MG/ML Oral Solution [Cheratussin] 5 ml, PO, Q6H, PRN for cough and congestion, # 120 mL, 0 Refill(s) Active 02/16/2018 [facility] Metoprolol Tartrate 25 mg oral tablet 25 mg=1 tab, PO, Daily, # 90 tab, 1 Refill(s), Pharmacy: [facility] [id number] Active 01/25/2018 [facility] Home Medication Turmero (K-[id number]), Refill(s) 0 Active 12/02/2017 [facility] pregabalin 300 MG Oral Capsule [Lyrica] 300 mg=1 cap, PO, Daily, # 90 cap, 1 Refill(s) Active 07/22/2017 [facility] DULoxetine 20 mg oral delayed release capsule 20 mg=1 cap, PO, Daily, # 30 cap, 3 Refill(s), Pharmacy: [facility] [id number], Dose decreased Active 07/22/2017 [facility] Sodium Chloride 0.154 MEQ/ML Injectable Solution 1,000 mL, Rate: 25 ml/hr, Infuse over: 40 hr, Route: IV, Dosing Weight 95.909 kg, Total Volume: 1,000, Start date: 11/10/16 7:20:00 CARE PARTNER, Duration: 1 day, Stop date: 11/11/16 7:19:00 [facility] Inactive 11/10/2016 [facility] Saline Flush 0.9% 10 mL, Route: IVP, Drug Form: INJ, Dosing Weight 71.818, kg, PRN, PRN Line Flush, Start date: 06/09/15 12:34:00, Duration: 30 day, Stop date: 07/09/15 11:33:00 Inactive 06/09/2015 [facility] Allergies, Adverse Reactions, Alerts Substance Category Reaction Severity Reaction type Status Date Reported Comments Source angiotensin converting enzyme inhibitors<sup>1, 2</sup> Assertion patient cannot remember reaction Drug allergy Active Data migrated from [employer] on 04/04/15. Originally documented as [facility]. Does not remember [facility] gabapentin Assertion made her feel bad Propensity to adverse reactions to drug Active [facility] Immunizations Immunization Date Given Site Status Last Updated Comments Source influenza virus vaccine, inactivated<sup>1</sup> 07/08/2018 Left Deltoid completed [facility] Result Comment: Patient waited 15 min with no reaction. [facility] influenza virus vaccine, inactivated 04/28/2017 Left Deltoid completed Beyer [facility] influenza virus vaccine, inactivated 07/03/2016 Left Deltoid completed Ricks [facility] influenza virus vaccine, inactivated 06/05/2015 Right Deltoid completed Tony [facility], [facility] [place] influenza virus vaccine, inactivated<sup>1</sup> 07/05/2014 Left Deltoid completed [facility] Result Comment: fluzone high dose [[id number]]. Migrated from OBS ; Data migrated from [employer] on 10/08/2015. [facility] influenza virus vaccine, inactivated<sup>2</sup> 07/05/2014 Left Deltoid completed [facility] Result Comment: fluzone high dose [[id number]]. Migrated from OBS ; Data migrated from [employer] on 10/08/2015. [facility] Hx influenza vaccine-unspecified<sup>3</sup> 05/10/2014 completed GE Result Comment: done. Migrated from OBS ; Data migrated from [employer] on 10/08/2015. [facility] Hx influenza vaccine-unspecified<sup>4</sup> 05/10/2014 completed [facility] Result Comment: done. Migrated from OBS ; Data migrated from [employer] on 10/08/2015. [facility] Hx influenza vaccine-unspecified<sup>1</sup> 05/10/2014 completed GE Result Comment: done. Migrated from OBS ; Data migrated from [employer] on 10/08/2015. [facility] pneumococcal 23-valent vaccine<sup>4</sup> 10/18/2013 Right Deltoid completed GE Result Comment: pneumovax 23 [[id number]]. Migrated from OBS VIS: Pneumovax 23: 06/11/09 ; Data migrated from [employer] on 10/08/2015. [facility] pneumococcal 23-valent vaccine<sup>5</sup> 10/18/2013 Right Deltoid completed [facility] Result Comment: pneumovax 23 [cvx33]. Migrated from OBS VIS: Pneumovax 23: 06/11/09 ; Data migrated from [employer] on 10/08/2015. [facility] influenza virus vaccine, inactivated<sup>2</sup> 07/26/2013 Left Deltoid completed GE Result Comment: fluzone (>3 yrs.) [[id number]]. Migrated from OBS ; Data migrated from [employer] on 10/08/2015. [facility] influenza virus vaccine, inactivated<sup>3</sup> 07/26/2013 Left Deltoid completed GE Result Comment: fluzone (>3 yrs.) [[id number]]. Migrated from OBS ; Data migrated from [employer] on 10/08/2015. [facility] Results Order Name Results Value Reference Range Date Interpretation Comments Source Breast Mammo Scrn PHILIPPE incl CAD MA Breast Mammo Scrn PHILIPPE incl CAD MA BILATERAL DIGITAL SCREENING MAMMOGRAM WITH CAD: 02/15/2018 Current study was evaluated with a Computer Aided Detection (CAD) system. COMPARISON:Comparison is made to exams dated: 11/24/2016 mammogram, 10/25/2015 mammogram, 10/23/2014 mammogram, 10/20/2013 mammogram, 07/15/2012 mammogram - [facility], and 01/13/2011 mammogram. TECHNIQUE: Mammographic views were obtained using digital acquisition. [employer] Version 1.3 was utilized for computer aided detection. FINDINGS: The tissue of both breasts is almost entirely fat. There is a benign appearing density in the left breast. No significant masses, calcifications, or other findings are seen in either breast. There has been no significant interval change. IMPRESSION: BENIGN RECOMMENDATION:There is no mammographic evidence of malignancy. A 1 year screening mammogram is recommended.(02/16/2019) This exam was interpreted at [id number] for [facility]. Alem yin/diomedes:02/15/2018 14:23:54 Respiratory Therapy Assistant(s): Juliane Diaz, [facility] letter sent: BI-RADS 1/2 Mammogram BI-RADS: 2 Benign 02/15/2018 - - Read by: Alem Bah MD Dictated Date/time: 02/15/18 14:23 Electronically Signed by: Alem Bah MD 02/15/18 14:23 FINAL REPORT [facility] Bone Density Scan Bone Density Scan Study: Bone Density Scan Clinical Indication: - OSTEOPOROSIS; Images of the axial lumbar spine and left hip have been performed using [employer] Discovery SL scanner. COMPARISON: 05/02/2015 FINDINGS: The left hip bone mineral density is 93% of the peak reference bone mass with a T-score of -0.5. Left hip BMD is 0.895 g/cm2. Left femoral neck BMD is 0.697 g/cm2 and T-score of -1.5. Total left hip BMD has decreased 4.7% since previous exam. Left femoral neck BMD has decreased 4.5% since previous exam. The axial lumbar bone mineral density is 104% of the peak reference bone mass with a T-score 0.4. Axial lumbar average BMD is 1.090 g/cm2. Lumbar spine BMD has increased 1.1% since previous exam. IMPRESSION: 1. Osteopenia of the left femoral neck. 2. Normal bone mineral density of the total left hip. 3. Normal bone mineral density of the lumbar spine. The World Health Organization has established that OSTEOPOROSIS occurs at -2.5 or more standard deviations (SD) below peak bone mass (T-score on the Hologic report). OSTEOPENIA (low bone mass) occurs at greater than -1.0 standard deviations to -2.5 standard deviations below peak bone mass. SL: [id number] 02/15/2018 - - Read by: Debra Perez MD Dictated Date/time: 02/15/18 14:01 Electronically Signed by: Debra Perez MD 02/15/18 14:11 FINAL REPORT [facility] Breast Mammo Scrn PHILIPPE incl CAD MA Breast Mammo Scrn PHILIPPE incl CAD MA - BREAST MAMMO SCRN PHILIPPE INCL CAD MA BILATERAL DIGITAL SCREENING MAMMOGRAM WITH CAD: 11/24/2016 CLINICAL: Routine. Current study was evaluated with a Computer Aided Detection (CAD) system. Comparison is made to exams dated: 10/25/2015 mammogram, 10/23/2014 mammogram, 10/20/2013 mammogram, 07/15/2012 mammogram - [facility], 01/13/2011 mammogram and 11/21/2009 mammogram. The tissue of both breasts is almost entirely fat. There is a benign appearing density in the left breast. No significant masses, calcifications, or other findings are seen in either breast. There has been no significant interval change. IMPRESSION: BENIGN There is no mammographic evidence of malignancy. A 1 year screening mammogram is recommended. Alem yin/penrad:11/24/2016 12:55:05 Respiratory Therapy Assistant: Xi Ruffin, [facility] This exam was dictated and interpreted by [id number] for [facility]. letter sent: Normal exam Mammogram BI-RADS: 2 Benign 11/24/2016 - - Read by: Alem Bah MD Dictated Date/time: 11/24/16 12:55 Electronically Signed by: Alem Bha MD 11/24/16 12:55 FINAL REPORT [facility] ELECTROLYTES AGAP 10.1 meq/L 10.0 - 20.0 11/05/2016 [facility] ELECTROLYTES BUN 12 mg/dL 7 - 22 11/05/2016 [facility] ELECTROLYTES Calcium Lvl 8.6 mg/dL 8.5 - 10.5 11/05/2016 [facility] ELECTROLYTES Potassium Lvl 4.1 meq/L 3.5 - 5.1 11/05/2016 [facility] ELECTROLYTES Chloride Lvl 103 meq/L 95 - 109 11/05/2016 [facility] ELECTROLYTES Creatinine Lvl 1.10 mg/dL 0.50 - 1.40 11/05/2016 [facility] ELECTROLYTES Sodium Lvl 140 meq/L 135 - 145 11/05/2016 [facility] ELECTROLYTES CO2 31 meq/L 24 - 32 11/05/2016 [facility] ELECTROLYTES eGFR 51 mL/min/1.73m2 11/05/2016 Result Comment: The eGFR is calculated using the CKD-EPI formula. In most young, healthy individuals the eGFR will be >90 mL/min/1.73m2. The eGFR declines with age. An eGFR of 60-89 may be normal in some populations, particularly the elderly, for whom the CKD-EPI formula has not been extensively validated. Use of the eGFR is not recommended in the following populations: Individuals with unstable creatinine concentrations, including patients and those with serious co-morbid conditions. Patients with extremes in muscle mass or diet. The data above are obtained from the National Kidney Disease Education Program (NKDEP) which additionally recommends that when the eGFR is used in patients with extremes of body mass index for purposes of drug dosing, the eGFR should be multiplied by the estimated BMI. [facility] ELECTROLYTES Glucose Lvl 142 mg/dL 70 - 99 11/05/2016 [facility] Digital Mammo Screening Philippe MA Digital Mammo Screening Philippe MA - DIGITAL MAMMO SCREENING PHILIPPE MA BILATERAL DIGITAL SCREENING MAMMOGRAM WITH CAD: 10/25/2015 CLINICAL: Routine. Current study was evaluated with a Computer Aided Detection (CAD) system. Comparison is made to exams dated: 10/23/2014 mammogram, 10/20/2013 mammogram, 07/15/2012 mammogram - [facility], 01/13/2011 mammogram, 11/21/2009 mammogram and 10/11/2009 mammogram. There are scattered fibroglandular densities in both breasts. There is a benign appearing density in the left breast. No significant masses, calcifications, or other findings are seen in either breast. There has been no significant interval change. IMPRESSION: BENIGN There is no mammographic evidence of malignancy. A 1 year screening mammogram is recommended. Alem yin/penrad:10/28/2015 11:27:33 Respiratory Therapy Assistant: Xi Ruffin, [facility] This exam was dictated and interpreted by [id number] for [facility]. letter sent: Normal exam Mammogram BI-RADS: 2 Benign 10/25/2015 - - Read by: Alem Bah MD Dictated Date/time: 10/28/15 11:27 Electronically Signed by: Alem Bah MD 10/28/15 11:27 FINAL REPORT [facility] Knee wo contrast MRI Knee wo contrast MRI EXAMINATION: MRI of the right knee without contrast. HISTORY: Chronic posterior right knee pain; osteoarthritis FINDINGS: Radiographs dated 09/30/2011 and MRI dated 01/25/2012 are reviewed. Multiplanar, multisequence magnetic resonance imaging of the right knee is performed with an extremity coil without contrast. Menisci: Medial: There is a large complex degenerative tear of the medial meniscus with diminutive residual meniscal body which is completely extruded within the medial gutter. Lateral: Intact. Ligaments: The cruciate and collateral ligaments are intact. Extensor mechanism: There is mild distal patellar tendinosis. The extensor mechanism is intact. Muscles: There is normal signal intensity and muscle bulk of the musculature at the knee. Cartilage: Within the medial compartment, there is progressive high-grade, near full-thickness chondrosis along the weight-bearing medial femoral condyle and matching medial tibial plateau with a focus of subchondral edema along the medial tibial rim and mesial aspect of the medial femoral condyle. Within the lateral compartment, there is progressive chondrosis with partial-thickness chondrosis along the mesial aspect of the lateral femoral condyle and deep partial-thickness chondrosis along the matching mesial aspect of the lateral tibial plateau. Within the patellofemoral compartment, there is diffuse deep partial-thickness chondrosis of the patella and trochlea. Bone: There is tricompartmental osteophyte formation. There are no fractures. Soft tissues: There is a small knee effusion without Parsons's cyst. IMPRESSION: 1. Large complex degenerative tear of the right knee medial meniscus with diminutive residual meniscal body which is completely extruded within the medial gutter. 2. Progressive moderate to severe medial compartment chondrosis of the right knee with high-grade, near full-thickness chondrosis along the weight-bearing medial femoral condyle and matching medial tibial plateau with subchondral edema within the medial tibial rim and mesial aspect of the medial femoral condyle. 3. Progressive mild to moderate lateral compartment chondrosis of the right knee with partial-thickness chondrosis along the mesial aspect of the lateral femoral condyle and deep partial-thickness chondrosis along the matching mesial aspect of the lateral tibial plateau. 4. Unchanged moderate patellofemoral compartment chondrosis of the right knee with diffuse deep partial-thickness chondrosis of the patella and trochlea. 5. Small right knee effusion. 6. Mild distal right patellar tendinosis without tear. 7. Intact right knee cruciate and collateral ligaments. 06/07/2015 - - Read by: Kota Viera MD Dictated Date/time: 06/08/15 09:42 Electronically Signed by: Kota Viera MD 06/08/15 09:51 FINAL REPORT [facility] Bone Density Scan Bone Density Scan DEXA BONE DENSITY TECHNIQUE: DEXA bone density evaluation was performed on a HoloCarbay scanner. Comparison is made to the study performed 02/13/2013. FINDINGS: Total lumbar spine bone density is 1.077 g/sq cm, 0.3 standard deviations above normal (T score 0.3). This represents normal bone density. Compared to the previous study, this measurement represents 8.8% increase in density. Total hip bone density is 0.939 g/sq cm, 0.2 standard deviations below normal (T score -0.2). Bone mineral density of the left femoral neck is 0.730 g/sq cm, 1.2 standard deviations below normal (T score -1.2). This represents osteopenia. Compared to the previous study, total hip density has increased by 7.2%. IMPRESSION: 1. Bone mineral density of the lumbar spine is within normal limits. There is interval increase in density. 2. Bone mineral density of the left hip is consistent with osteopenia and increased fracture risk. There is interval increase in density. FOR YOUR INFORMATION: The World Health Organization has established that OSTEOPOROSIS occurs at -2.5 or more standard deviations (SD) below peak bone mass (T-score on the Hologic report). OSTEOPENIA (low bone mass) occurs between -1.0 to -2.5 standard deviations below peak bone mass. SL: 16 05/02/2015 - - Read by: Lit Goff MD Dictated Date/time: 05/02/15 12:32 Electronically Signed by: Lit Goff MD 05/02/15 13:03 FINAL REPORT [facility] Spine lumbar wo contrast MRI Spine lumbar wo contrast MRI MRI LUMBAR SPINE WITHOUT CONTRAST COMPARISON: 10/17/2012 MRI exam. TECHNIQUE: Sagittal T1, sagittal T2 with fat saturation, axial T1 and axial T2 images were obtained. No intravenous gadolinium was given. FINDINGS: The paravertebral soft tissues are normal. The conus medullaris terminates at the L1 level. Stable mild dextrocurvature of the lumbar spine is present. T10-T11 moderate bilateral facet osteoarthritis with moderate bilateral foraminal stenosis is again seen. T12-L1: Unremarkable. L1-L2: Minimal disc bulge is present without central canal or foraminal stenosis. L2-L3: Slightly more prominent broad-based disc bulge measuring 1.6 mm is present with mild central canal stenosis. Stable mild left foraminal stenosis is again seen due to extraforaminal disc osteophyte complex. L3-L4: Stable mild disc bulge with minimal central canal stenosis. Scattered annular fissures are present. There is stable mild to moderate bilateral foraminal stenosis due to disc osteophyte complex encroachment with mild mass effect on the bilateral L3 exiting nerve roots. L4-L5: Stable 3 mm disc bulge with minimal central canal stenosis. There is stable severe left foraminal stenosis due to disc osteophyte complex encroachment. There is progressive severe right foraminal stenosis due to disc osteophyte complex encroachment. Mass effect on the bilateral L4 exiting nerve roots is present. L5-S1: Stable 4.9 mm central disc protrusion with minimal central canal stenosis stable severe bilateral foraminal stenosis is present due to disc osteophyte complex encroachment. Small bilateral renal cysts are again seen. IMPRESSION: 1. Multilevel disc degenerative disease and spondylosis. 2. Progressive right L4-L5 severe foraminal stenosis due to disc osteophyte complex encroachment since 10/17/2012. 3. Slightly more prominent L2-L3 disc bulge with mild central canal stenosis. 4. Other degenerative findings are stable as above. 12/24/2014 - - Read by: Rolando Muñoz MD Dictated Date/time: 12/25/14 07:36 Electronically Signed by: Rolando Muñoz MD 12/25/14 11:24 FINAL REPORT [facility] [place] Digital Mammo Screening Philippe MA Digital Mammo Screening Philippe MA - DIGITAL MAMMO SCREENING PHILIPPE MA BILATERAL DIGITAL SCREENING MAMMOGRAM WITH CAD: 10/23/2014 CLINICAL: Routine. Current study was evaluated with a Computer Aided Detection (CAD) system. Comparison is made to exams dated: 10/20/2013 mammogram, 07/15/2012 mammogram - [facility], 01/13/2011 mammogram, 11/21/2009 mammogram and 10/11/2009 mammogram. There are scattered fibroglandular densities in both breasts. There is a benign appearing density in the left breast. No significant masses, calcifications, or other findings are seen in either breast. There has been no significant interval change. IMPRESSION: BENIGN There is no mammographic evidence of malignancy. A 1 year screening mammogram is recommended. Alem yin/penrad:10/24/2014 07:53:35 Respiratory Therapy Assistant: Xi Ruffin, [facility] This exam was dictated and interpreted by [id number] for [facility]. letter sent: Normal exam Mammogram BI-RADS: 2 Benign 10/23/2014 - - Read by: Alem Bah MD Dictated Date/time: 10/24/14 07:53 Electronically Signed by: Alem Bah MD 10/24/14 07:53 FINAL REPORT [facility] Abdomen/Pelvis w IV contrast CT Abdomen/Pelvis w IV contrast CT EXAMINATION: CT of the abdomen and pelvis with contrast HISTORY: abdomen pain COMPARISON: CT of the abdomen and pelvis from 09/20/2009 DLP: 1756.63 TECHNIQUE: Multiple transaxial images through the abdomen and pelvis were acquired following administration of intravenous contrast material. Oral contrast was administered. Multiplanar reformatted images were performed. FINDINGS: The lung bases are clear bilaterally. The patient is status post cholecystectomy. No intrahepatic or extra hepatic biliary duct dilatation is seen. The liver, pancreas, spleen, and adrenal glands are unremarkable. Bilateral renal hypodense cysts are stable. Right renal arterial stent is seen. 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 The bladder, uterus, and visualized ovaries are unremarkable. Multiple colonic diverticula are seen without inflammatory change to suggest acute diverticulitis. The appendix is not visualized. Surgical clips near the gastroesophageal junction are seen. No intraperitoneal free air, free fluid, or pathologic adenopathy is seen. Arterial calcifications are noted. Advanced degenerative changes of the lower lumbar spine are seen. IMPRESSION: No acute intra-abdominal/pelvic abnormality. SL: 12 07/20/2014 - - Read by: Barney Yepez MD Dictated Date/time: 07/20/14 11:57 Electronically Signed by: Barney Yepez MD 07/20/14 12:01 FINAL REPORT [facility] Digital Mammo Screening Philippe MA Digital Mammo Screening Philippe MA - DIGITAL MAMMO SCREENING PHILIPPE MA BILATERAL DIGITAL SCREENING MAMMOGRAM WITH CAD: 10/20/2013 CLINICAL: Screening. Current study was evaluated with a Computer Aided Detection (CAD) system. Comparison is made to exams dated: 07/15/2012 mammogram - [facility], 01/13/2011 mammogram, 10/11/2009 mammogram and 11/21/2009 mammogram. There are scattered fibroglandular densities in both breasts. There is a benign appearing density in the left breast. No significant masses, calcifications, or other findings are seen in either breast. There has been no significant interval change. IMPRESSION: BENIGN There is no mammographic evidence of malignancy. A screening mammogram in one year is recommended. Alem yin/penrad:10/23/2013 07:40:40 Respiratory Therapy Assistant: Crys Valle, [facility] This exam was dictated and interpreted by [id number] at [facility] [place] 13. letter sent: Normal exam Mammogram BI-RADS: 2 Benign 10/20/2013 - - Read by: Alem Bah Dictated Date/time: 10/23/13 07:40 Electronically Signed by: Alem Bah MD 10/23/13 07:40 FINAL REPORT [facility] Vital Signs Vital Sign Value Date Comments Source Heart Rate 64 01/09/2019 [facility] Respitory Rate 16 01/09/2019 [facility] Temperature Oral (F) 97.8 F 01/09/2019 [facility] BMI Calculated 42.57 01/09/2019 [facility] Weight 98.864 01/09/2019 [facility] Height 152.4 cm 01/09/2019 [facility] Systolic (mm Hg) 148 01/09/2019 [facility] Diastolic (mm Hg) 81 01/09/2019 [facility] Weight 96.818 12/20/2018 [facility] BMI Calculated 41.69 12/20/2018 [facility] Height 152.4 cm 12/20/2018 [facility] Heart Rate 68 12/20/2018 [facility] Respitory Rate 16 12/20/2018 [facility] Temperature Oral (F) 97.3 F 12/20/2018 [facility] Systolic (mm Hg) 143 12/20/2018 [facility] Diastolic (mm Hg) 81 12/20/2018 [facility] Weight 90.682 02/16/2018 [facility] Temperature Oral (F) 97.5 F 02/16/2018 [facility] Respitory Rate 16 02/16/2018 [facility] Heart Rate 75 02/16/2018 [facility] Systolic (mm Hg) 135 02/16/2018 [facility] Diastolic (mm Hg) 89 02/16/2018 [facility] BMI Calculated 39.04 02/16/2018 [facility] Height 152.4 cm 02/16/2018 [facility] Weight 93.239 12/02/2017 [facility] Systolic (mm Hg) 131 12/02/2017 [facility] Diastolic (mm Hg) 73 12/02/2017 [facility] Temperature Oral (F) 98.7 F 12/02/2017 [facility] Heart Rate 57 12/02/2017 [facility] Respitory Rate 16 12/02/2017 [facility] Height 149.86 cm 12/02/2017 [facility] BMI Calculated 41.52 12/02/2017 [facility] Systolic (mm Hg) 138 07/22/2017 [facility] Diastolic (mm Hg) 85 07/22/2017 [facility] BMI Calculated 43.31 07/22/2017 [facility] Weight 97.273 07/22/2017 [facility] Height 149.86 cm 07/22/2017 [facility] Respitory Rate 16 07/22/2017 [facility] Temperature Oral (F) 97.3 F 07/22/2017 [facility] Heart Rate 74 07/22/2017 [facility] Systolic (mm Hg) 146 07/22/2017 [facility] Diastolic (mm Hg) 94 07/22/2017 [facility] Systolic (mm Hg) 147 11/10/2016 [facility] Diastolic (mm Hg) 68 11/10/2016 [facility] Respitory Rate 18 11/10/2016 [facility] Systolic (mm Hg) 138 11/10/2016 [facility] Diastolic (mm Hg) 74 11/10/2016 [facility] Respitory Rate 15 11/10/2016 [facility] Systolic (mm Hg) 150 11/10/2016 [facility] Diastolic (mm Hg) 85 11/10/2016 [facility] Respitory Rate 16 11/10/2016 [facility] Temperature Oral (F) 97.9 F 11/05/2016 [facility] Heart Rate 61 11/05/2016 [facility] Height 149.86 cm 11/05/2016 [facility] Weight 95.909 11/05/2016 [facility] BMI Calculated 42.71 11/05/2016 [facility] Systolic (mm Hg) 145 06/09/2015 [facility] Diastolic (mm Hg) 78 06/09/2015 [facility] Respitory Rate 18 06/09/2015 [facility] Heart Rate 98 06/09/2015 [facility] Height 152.4 cm 06/09/2015 [facility] Weight 71.818 06/09/2015 [facility] Respitory Rate 20 06/09/2015 [facility] Heart Rate 97 06/09/2015 [facility] BMI Calculated 30.92 06/09/2015 [facility] Systolic (mm Hg) 180 06/09/2015 [facility] Diastolic (mm Hg) 108 06/09/2015 [facility] Temperature Oral (F) 98.2 F 06/09/2015 [facility] Respitory Rate 18 06/06/2014 [facility] Diastolic (mm Hg) 76 06/06/2014 [facility] Systolic (mm Hg) 156 06/06/2014 [facility] Weight 99.091 06/05/2014 [facility] BMI Calculated 39.96 06/05/2014 [facility] Height 157.48 cm 06/05/2014 [facility] Encounters Location Location Details Encounter Type Encounter Number Reason For Visit Attending Provider ADM Date DC Date Status Source [facility] Outpatient [id number] ABD PAIN FRANCINE WONG 07/15/2011 Active [facility] Outpatient [id number] ROUTINE BHUMIKA MCINTYRE 10/20/[address] [facility] Bedded Outpatient [id number] Mary Sharp 06/06/2014 06/06/[address] [facility] Outpatient [id number] Bhumika Mcintyre 07/20/2014 2014 [facility] [place] [facility] [id number] Brennon Arce 12/24/2014 12/25/2014 [facility] Outpatient [id number] Bhumika Mcintyre 05/02/2015 05/03/2015 [facility] Outpatient [id number] BHUMIKA MCINTYRE 06/05/2015 Active [facility] [place] [facility] [id number] Tobin Cee 06/07/2015 06/08/2015 [facility] [id number] Roger Jacome 06/09/2015 06/09/2015 [facility] Outpatient [id number] BHUMIKA MCINTYRE 06/10/[address] [facility] Outpatient [id number] BHUMIKA MCINTYRE 07/10/[address] [facility] Outpatient [id number] BHUMIKA MCINTYRE 08/05/2015 Active [facility] Outpatient [id number] Last Jordan 10/25/2015 10/26/2015 [facility] Outpatient [id number] BHUMIKA MCINTYRE 11/04/[address] [facility] Outpatient [id number] BHUMIKA MCINTYRE 07/03/[address] [facility] Outpatient [id number] BHUMIKA MCINTYRE 08/03/2016 Active [facility] [id number] BHUMIKA MCINTYRE 08/24/2016 Active [facility]patient [id number] BHUMIKA MCINTYRE 09/25/2016 Active [facility] Outpatient [id number] SPRAGUE LE 10/08/2016 Active [facility] Outpatient [id number] SPRAGUE XAVIER 10/09/2016 Active [facility] Bedded Outpatient [id number] Mary Sharp 11/10/2016 11/10/[address] [facility] Outpatient [id number] Bhumika Mcintyre 11/24/2016 11/25/2016 [facility] Outpatient [id number] BHUMIKA MCINTYRE 12/01/2016 Active [facility] Outpatient [id number] BHUMIKA MCINTYRE 01/01/2017 Active [facility] Outpatient [id number] BHUMIKA MCINTYRE 02/02/2017 Active [facility] Outpatient [id number] BHUMIKA MCINTYRE 02/09/2017 Active [facility] Outpatient [id number] BHUMIKA MCINTYRE 04/02/2017 Active [facility] Outpatient [id number] BHUMIKA MCINTYRE 04/28/2017 Active [facility] Outpatient [id number] BHUMIKA MCINTYRE 06/18/2017 Active [facility] Outpatient [id number] BHUMIKA MCINTYRE 07/22/2017 Active [facility] Primary Care [facility] Outpatient [id number] Bhumika Mcintyre 07/22/2017 07/23/2017 [facility] Outpatient [id number] BHUMIKA MCINTYRE 12/02/2017 Active [facility] Primary Care [facility] Outpatient [id number] Bhumika Mcintyre 12/02/2017 12/03/2017 [facility] Primary Care [facility] Phone Message [id number] 01/20/2018 01/22/2018 [facility] Primary Care [facility] Phone Message [id number] 01/20/2018 01/22/2018 [facility] Primary Care [facility] Phone Message [id number] 01/25/2018 01/27/2018 [facility] Outpatient [id number] Bhumika Mcintyre 02/15/2018 02/16/2018 [facility] Outpatient [id number] BHUMIKA MCINTYRE 02/16/2018 Active [facility] Outpatient [id number] Bhumika Daviso 02/16/2018 02/17/2018 [facility] Phone Message [id number] 02/24/2018 02/26/2018 [facility] Phone Message [id number] 03/26/2018 03/28/2018 [facility] Phone Message [id number] 05/17/2018 05/19/2018 [facility] Outpatient [id number] BHUMIKA MCINTYRE 06/03/2018 Active [facility] Ambulatory Pre-Reg [id number] Bhumika Daviso 06/03/2018 06/03/2018 [facility] Phone Message [id number] 06/05/2018 06/06/2018 [facility] Outpatient [id number] BHUMIKA MCINTYRE 07/08/[address] [facility] Outpatient [id number] Bhumika Mcintyre 12/20/2018 Active [facility] Outpatient [id number] Bhumika Mcintyre 12/20/2018 12/21/2018 [facility] Phone Message [id number] 12/23/2018 12/25/2018 [facility] Outpatient [id number] Bhumika Mcintyre 01/09/2019 Active [facility] Outpatient [id number] Bhumika Mcintyre 01/09/2019 01/10/2019 [facility] Outpatient [id number] Bhumika Mcintyre 07/10/[address] [facility] Procedures Procedure Code Date Perfomer Comments Source Influenza vaccination [id number] 07/08/2018 [facility] Bone density scan<sup>1</sup> [id number] 02/15/2018 IMPRESSION: 1. Osteopenia of the left femoral neck. 2. Normal bone mineral density of the total left hip. 3. Normal bone mineral density of the lumbar spine. [facility] Screening mammography of bilateral breasts<sup>2</sup> [id number] 02/15/2018 IMPRESSION: BENIGN RECOMMENDATION:There is no mammographic evidence of malignancy. A 1 year screening mammogram is recommended.(02/16/2019) [facility] Bone density scan<sup>1</sup> [id number] 02/15/2018 IMPRESSION: 1. Osteopenia of the left femoral neck. 2. Normal bone mineral density of the total left hip. 3. Normal bone mineral density of the lumbar spine. [facility] Health Screening mammography of bilateral breasts<sup>2</sup> [id number] 02/15/2018 IMPRESSION: BENIGN RECOMMENDATION:There is no mammographic evidence of malignancy. A 1 year screening mammogram is recommended.(02/16/2019) [facility] Diabetic retinal eye exam<sup>3</sup> [id number] 11/04/2017 [facility] Diabetic retinal eye exam<sup>3</sup> [id number] 11/04/2017 [facility] Influenza vaccination [id number] 04/28/2017 [facility] Influenza vaccination [id number] 04/28/2017 [facility] Myocardial perfusion scan<sup>1</sup> [id number] 01/12/2017 normal [facility] Myocardial perfusion scan<sup>4</sup> [id number] 01/12/2017 normal [facility] Myocardial perfusion scan<sup>4</sup> [id number] 01/12/2017 normal [facility] Esophagogastroduodenoscopy<sup>2</sup> [id number] 12/28/2016 Esophagitis, nutcracker esophagus [facility] Esophagogastroduodenoscopy<sup>5</sup> [id number] 12/28/2016 Esophagitis, nutcracker esophagus [facility] Esophagogastroduodenoscopy<sup>5</sup> [id number] 12/28/2016 Esophagitis, nutcracker esophagus [facility] Screening mammography<sup>3</sup> [id number] 12/04/2016 IMPRESSION: BENIGN There is no mammographic evidence of malignancy. A 1 year screening mammogram is recommended. [facility] Screening mammography<sup>6</sup> [id number] 12/04/2016 IMPRESSION: BENIGN There is no mammographic evidence of malignancy. A 1 year screening mammogram is recommended. [facility] Screening mammography<sup>6</sup> [id number] 12/04/2016 IMPRESSION: BENIGN There is no mammographic evidence of malignancy. A 1 year screening mammogram is recommended. [facility] Esophagogastroduodenoscopy<sup>4</sup> [id number] 11/10/2016 schatzki's ring was dilated, nonerozive gastritis, diminutive hiatal hernia [facility] Esophagogastroduodenoscopy<sup>7</sup> [id number] 11/10/2016 schatzki's ring was dilated, nonerozive gastritis, diminutive hiatal hernia [facility] Esophagogastroduodenoscopy<sup>7</sup> [id number] 11/10/2016 schatzki's ring was dilated, nonerozive gastritis, diminutive hiatal hernia [facility] Excision of mass from thigh [id number] 10/09/2016 [facility] Excision of mass from thigh [id number] 10/09/2016 [facility] Bone density scan<sup>5</sup> [id number] 05/02/2015 IMPRESSION: 1. Bone mineral density of the lumbar spine is within normal limits. There is interval increase in density. 2. Bone mineral density of the left hip is consistent with osteopenia and increased fracture risk. There is interval increase in density. [facility] Bone density scan<sup>8</sup> [id number] 05/02/2015 IMPRESSION: 1. Bone mineral density of the lumbar spine is within normal limits. There is interval increase in density. 2. Bone mineral density of the left hip is consistent with osteopenia and increased fracture risk. There is interval increase in density. [facility] Bone density scan<sup>8</sup> [id number] 05/02/2015 IMPRESSION: 1. Bone mineral density of the lumbar spine is within normal limits. There is interval increase in density. 2. Bone mineral density of the left hip is consistent with osteopenia and increased fracture risk. There is interval increase in density. [facility] Esophageal motility study<sup>6</sup> [id number] 06/06/2014 Esophageal spasm c/w Nutcracker esophagus [facility] Esophageal motility study<sup>9</sup> [id number] 06/06/2014 Esophageal spasm c/w Nutcracker esophagus [facility] Esophageal motility study<sup>9</sup> [id number] 06/06/2014 Esophageal spasm c/w Nutcracker esophagus [facility] Esophageal motility study<sup>1</sup> [id number] 06/06/2014 Esophageal spasm c/w Nutcracker esophagus [facility] Esophagogastroduodenoscopy<sup>7</sup> [id number] 01/03/2014 hiatal hernia, stenotic upper esophageal stricture s/p dilatation [facility] Esophagogastroduodenoscopy<sup>10</sup> [id number] 01/03/2014 hiatal hernia, stenotic upper esophageal stricture s/p dilatation [facility] Esophagogastroduodenoscopy<sup>10</sup> [id number] 01/03/2014 hiatal hernia, stenotic upper esophageal stricture s/p dilatation [facility] Esophagogastroduodenoscopy<sup>2</sup> [id number] 01/03/2014 hiatal hernia, stenotic upper esophageal stricture s/p dilatation [facility] [id number] 09/06/2013 [facility] Colonoscopy [id number] 09/06/2013 [facility] Arthroscopy of knee [id number] 07/11/2013 [facility] Arthroscopy of knee [id number] 07/11/2013 [facility] Arthroscopy of knee [id number] 07/11/2013 [facility] [place] Pneumococcal vaccination<sup>11</sup> [id number] 10/17/2012 Pneumovax [facility] Pneumococcal vaccination<sup>11</sup> [id number] 10/17/2012 Pneum[facility] Cardiac catheterization [id number] [facility] Cholecystectomy [id number] [facility] Stevo fundoplication [id number] [facility] PTCA - Percutaneous transluminal coronary angioplasty<sup>8</sup> [id number] 2005 [facility] Radiofrequency ablation of nerve root of lumbar spine using fluoroscopic guidance [id number] [facility] Repair of rectovaginal fistula [id number] [facility] Suspension of bladder [id number] [facility] Cardiac catheterization [id number] [facility] Cholecystectomy [id number] [facility] Stevo fundoplication [id number] [facility] PTCA - Percutaneous transluminal coronary angioplasty<sup>12</sup> [id number] 2005 [facility] Radiofrequency ablation of nerve root of lumbar spine using fluoroscopic guidance [id number] [facility] Repair of rectovaginal fistula [id number] [facility] Suspension of bladder [id number] [facility] Birthing procedure [id number] [facility] [place] Cardiac catheterization [id number] [facility] [place] Gallbladder operation [id number] [facility] [place] Hernia repair [id number] [facility] [place] Birthing procedure [id number] [facility] Gallbladder operation [id number] [facility] Hernia repair [id number] [facility] PTCA - Percutaneous transluminal coronary angioplasty<sup>12</sup> [id number] 2005 [facility] PTCA - Percutaneous transluminal coronary angioplasty<sup>1</sup> [id number] 2005 [facility] PTCA - Percutaneous transluminal coronary angioplasty<sup>3</sup> [id number] 2005 [facility] Cholecystectomy [id number] [facility] [place] PTCA - Percutaneous transluminal coronary angioplasty<sup>1</sup> [id number] 2005 [facility] [place] Radiofrequency ablation of nerve root of lumbar spine using fluoroscopic guidance [id number] [facility] [place] Repair of rectovaginal fistula [id number] [facility] [place] Suspension of bladder [id number] [facility] [place]
--- OUTSIDE RECORDS SUMMARY | 2019-01-14 14:29 | XMS REPORT | Summary of Care ---
Author Author [facility] Organization [facility] Address Unknown Phone Unavailable Encounter [facility](FIN) [id number] Date(s): 05/02/15 - 05/02/15 [facility] [address] [place] [address]- Discharge Disposition: Home Attending Physician: Emeli Torres MD Referring Physician: Emeli Torres MD Vital Signs No data available for this section Problem List Condition Effective Dates Status Health Status Informant Abdominal pain1 07/09/14 Active Acid Active reflux(Confirmed) Acute bronchitis2, 3 10/04/14 Active Acute sinusitis4 Resolved Acute upper 05/16/13 Resolved respiratory infection5 Allergic rhinitis6 Active Back pain(Confirmed) Active Saeed's palsy7 Active Benign essential 02/01/13 Active hypertension8 Bereavement9 05/10/14 Active Calcaneal spur10 08/15/13 Active Chest Resolved pain(Confirmed)11 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 vtkbdyj32 Gastroesophageal 02/01/13 Active reflux miaqgvv35 Heart Resolved attack(Confirmed)14 Hip pain15 12/15/13 Active HTN Active (hypertension)(Confi rmed) Influenza 05/10/14 Resolved peudajudjbp01 Low back pain17 07/05/14 Active Mixed 02/01/13 Active xuoowunbzyvfsv05 Morbid ojpnntg77 01/30/15 Active Osteoarthritis of 07/26/13 Active foot joint20 Osteoarthritis of 02/01/13 Active knee21 Rpckraercl43 02/15/13 Active Peripheral edema23 02/01/13 Active Peripheral nerve 02/01/13 Active wdpkfum73 Screening for 10/04/14 Active malignant neoplasm of yivbfg15, 26 Spinal stenosis of 02/01/13 Active lumbar yihozs68 Stricture of 05/16/13 Active mljfwwlej17 Temporomandibular 01/30/15 Active sxbht-lylg-zqfvgzpyf on zslvelzq95 Type 2 diabetes 02/15/13 Active 1Data migrated from [employer] on 02/02/15. 2Data migrated from [employer] on 03/13/15. 3Data migrated from [employer] on 02/05/15. 4Data migrated from [employer] on 03/22/15. 5Data migrated from [employer] on 03/23/15. 6Data migrated from [employer] on 02/02/15. 7Data migrated from [employer] on 02/02/15. 8Data migrated from [employer] on 02/02/15. 9Data migrated from [employer] on 02/02/15. 10Data migrated from [employer] on 02/02/15. [id number] recurrence 12Data migrated from [employer] on 02/02/15. 13Data migrated from [employer] on 02/02/15. [id number] 15Data migrated from [employer] on 02/02/15. 16Data migrated from [employer] on 03/23/15. 17Data migrated from [employer] on 02/02/15. 18Data migrated from [employer] on 02/02/15. 19Data migrated from [employer] on 03/13/15. 20Data migrated from [employer] on 02/02/15. 21Data migrated from [employer] on 02/02/15. 22Data migrated from [employer] on 02/02/15. 23Data migrated from [employer] on 02/02/15. 24Data migrated from [employer] on 02/02/15. 25Data migrated from [employer] on 03/13/15. 26Data migrated from [employer] on 02/05/15. 27Data migrated from [employer] on 02/02/15. 28Data migrated from [employer] on 02/02/15. 29Data migrated from [employer] on 03/13/15. 30Data migrated from [employer] on 02/02/15. Allergies, Adverse Reactions, Alerts Substance Reaction Severity Status angiotensin converting Active enzyme inhibitors1, 2 NKDA Active 1Data migrated from [employer] on 04/05/15. Originally documented as BRITT INHIBITORS. Does not remember 2Data migrated from [facility] on 04/04/15. Originally documented as BRITT INHIBITORS. Does not remember Medications No data available for this section Results No data available for this section Immunizations No data available for this section Procedures Procedure Date Related Diagnosis Body Site Birthing procedure Cardiac catheterization Gallbladder operation Hernia repair Social History Social History Type Response Substance Abuse Use: None. Alcohol Current, Type Liquor. Frequency: 1-2 times per year. Smoking Status Never smoker; Exposure to Tobacco Smoke None; Cigarette Smoking Last 365 Days No; Reg Smoking Cessation Counseling Yes Assessment and Plan No data available for this section
--- OUTSIDE RECORDS SUMMARY | 2019-01-14 14:29 | XMS REPORT | Summary of Care ---
Author Author [facility] Organization [facility] Address Unknown Phone Unavailable Encounter [facility](FIN) [id number] Date(s): 03/26/18 - 03/27/18 [facility] [address], [address] [place] [address]- [phone] Vital Signs No data available for this [...] as BRITT INHIBITORS. Does not remember Medications hydrochlorothiazide-losartan 12.5 mg-100 mg oral tablet =1 tab, PO, Daily, # 90 tab, Refill(s) 1, Pharmacy: [facility] [id number] Start Date: 09/12/18 Status: Ordered hydrochlorothiazide-losartan 12.5 mg-100 mg oral tablet =1 tab, PO, Daily, # 90 tab, Refill(s) 1, Pharmacy: [facility] [id number] Start Date: 03/28/18 Stop Date: 09/12/18 Status: Completed OneTouch Ultra Blue Blood Glucose Test Strip Check blood sugar once daily., MISC, Daily, # 150 ea, Not insulin dependent, [place] s not use insulin pump, Last DM eval date 02/16/18, 5 Refill(s) Start Date: 03/28/18 Status: Ordered Results No data available for [...] no reaction. 2Result Comment: fluzone high dose [jsw251]. Migrated from OBS ; Data migrated from [employer] on 10/08/2015. 3Result Comment: fluzone (>3 yrs.) [iob305]. Migrated from OBS ; Data migrated from [employer] on 10/08/2015. 4Result Comment: done. Migrated from OBS ; Data migrated from [employer] on 10/08/2015. 5Result Comment: pneumovax 23 [cvx33]. Migrated from OBS VIS: Pneumovax 23: 06/11/09 ; Data migrated from [employer] on 10/08/2015. Procedures Procedure Date Related Diagnosis [...] 05/02/15 Completed Esophageal motility study9 06/06/14 Completed Euryurfqeoazxboekxdxmgtoqh83 01/03/14 Completed Colonoscopy 2013 Completed Arthroscopy of knee 07/11/13 Completed Pneumococcal vgszcgubhpl46 10/17/12 Completed Cardiac catheterization Completed Cholecystectomy Completed Stevo fundoplication Completed PTCA - Percutaneous transluminal coronary Completed luswdifasgt99 Radiofrequency ablation of nerve root of Completed [...] stenotic upper esophageal stricture s/p dilatation 11Pneumovax [id number] Social History Social History Type Response Substance Abuse Use: None. Exercise Exercise type: none. Alcohol Past, Type Liquor. Frequency: 1-2 times per year. Smoking Status Never smoker; Exposure to Tobacco Smoke None; Cigarette Smoking Last 365 Days No; Reg Smoking Cessation Counseling Yes entered on: 07/08/18 Assessment and Plan No data available for this section
--- OUTSIDE RECORDS SUMMARY | 2019-01-14 14:29 | XMS REPORT | Summary of Care ---
Author Organization Unknown Address Unknown Phone Unavailable Encounter [facility](FIN) [id number] Date(s): 12/24/14 - 12/24/14 [facility] - [place] [address] [place] [address]- [facility] [phone] Discharge Disposition: Home Physician Attending: Brennon Arce MD Vital Signs No data available for this section Problem List Condition Effective Dates Status Health Status Informant Acid Active reflux(Confirmed) Back pain(Confirmed) Active Chest Resolved pain(Confirmed)1 Heart Resolved attack(Confirmed)2 HTN Active (hypertension)(Confi rmed) 44955-ti recurrence 46023 Allergies, Adverse Reactions, Alerts Substance Reaction Severity Status NKDA Active Medications No data available for this section [...]
--- OUTSIDE RECORDS SUMMARY | 2019-01-14 14:29 | XMS REPORT | Summary of Care ---
Author Organization Unknown Address Unknown Phone Unavailable Encounter HQ [facility]er[facility](MARTIN) [id number] Date(s): 07/20/14 - 07/20/14 [facility] [address] Discharge Disposition: Home Physician Attending: Emeli Torres MD Physician_Referring: Emeli Torres MD Reason for Visit ABDOMINAL PAIN Problem List Condition Effective Dates Status Health Status Informant Acid Active reflux(Confirmed) Back pain(Confirmed) Active Chest Resolved pain(Confirmed)1 Heart Resolved attack(Confirmed)2 HTN Active (hypertension)(Confi rmed) 24218-bk recurrence 52372 Allergies, Adverse Reactions, Alerts Substance Reaction Severity Status NKDA Active Medications No data available for this section Medications Administered During Your Visit No data available for this section Immunizations No data available for this section Social History Social History Type Response Substance Abuse Use: None Alcohol Use: Current, Type: Liquor, Frequency: 1-2 times per year Smoking Status Never smoker, Exposure to Tobacco Smoke None, Cigarette Smoking Last 365 Days No, Reg Smoking Cessation Counseling Yes
--- OUTSIDE RECORDS SUMMARY | 2019-01-14 14:29 | XMS REPORT | Summary of Care ---
Author Organization Unknown Address Unknown Phone Unavailable Encounter HQ Phu(MARTIN) [id number] Date(s): 06/06/14 - 06/06/14 [facility] [address] Discharge Disposition: Home Physician Attending: Mary Sharp MD Physician Admitting: Mary Sharp MD Physician_Referring: Mary Sharp MD Reason for Visit 401.9/V65.3/787.20/530.81 Vital Signs Most recent to 1 oldest [Reference Range]: Height 157.48 cm (06/05/14 2:47 PM) Systolic Blood 156 mmHg Pressure [90-140 *HI* mmHg] (06/06/14 12:00 PM) Diastolic Blood 76 mmHg Pressure [60-90 (06/06/14 12:00 PM) mmHg] Respiratory Rate 18 BRMIN [14-20 BRMIN] (06/06/14 12:00 PM) Weight 99.091 kg (06/05/14 2:47 PM) Body Mass Index 39.96 m2 (06/05/14 2:47 PM) Problem List Condition Effective Dates Status Health Status Informant Acid Active reflux(Confirmed) Back pain(Confirmed) Active Chest Resolved pain(Confirmed)1 Heart Resolved attack(Confirmed)2 HTN Active (hypertension)(Confi rmed) 19356-ac recurrence 61035 Allergies, Adverse Reactions, Alerts Substance Reaction Severity [...]
--- OUTSIDE RECORDS SUMMARY | 2019-01-14 14:29 | XMS REPORT | Summary of Care ---
Author Author [facility] Organization [facility] Address Unknown Phone Unavailable Encounter [facility](FIN) [id number] Date(s): 12/02/17 - 12/02/17 [facility] [address], [address] [place] [address]- [phone] Discharge Disposition: Home or Self Care Attending [...] 10/18/13 Given 1Result Comment: fluzone high dose [sop975]. Migrated from OBS ; Data migrated from [employer] on 10/08/2015. 2Result Comment: fluzone (>3 yrs.) [ubh239]. Migrated from OBS ; Data migrated from [employer] on 10/08/2015. 3Result Comment: done. Migrated from OBS ; Data migrated from [employer] on 10/08/2015. 4Result Comment: pneumovax 23 [cvx33]. Migrated from OBS VIS: Pneumovax 23: 06/11/09 ; Data migrated from [employer] on 10/08/2015. Procedures Procedure Date Related Diagnosis [...] 05/02/15 Completed Esophageal motility study9 06/06/14 Completed Ttksbfkgmorfpnxcrpsbleffxl71 01/03/14 Completed Colonoscopy 2013 Completed Arthroscopy of knee 07/11/13 Completed Pneumococcal acrkebkrsok83 10/17/12 Completed Cardiac catheterization Completed Cholecystectomy Completed Stevo fundoplication Completed PTCA - Percutaneous transluminal coronary Completed kwqoxpafjoh04 Radiofrequency ablation of nerve root of Completed [...] stenotic upper esophageal stricture s/p dilatation 11Pneumovax [id number] Social History Social History Type Response Substance Abuse Use: None. Exercise Exercise type: none. Alcohol Past, Type Liquor. Frequency: 1-2 times per year. Smoking Status Never smoker; Exposure to Tobacco Smoke None; Cigarette Smoking Last 365 Days No; Reg Smoking Cessation Counseling Yes entered on: 02/16/18 Assessment and Plan No data available for this section
--- OUTSIDE RECORDS SUMMARY | 2019-01-14 14:29 | XMS REPORT | CCD ---
Author Author Auto [facility] Organization [facility] Address Unknown Phone Unavailable Care Team Providers Care Screw Machine Hand Name Role Phone Emeli Torres RP Allergies, Adverse Reactions, Alerts Substance Reaction Status NKDA Active
--- OUTSIDE RECORDS SUMMARY | 2019-01-14 14:29 | XMS REPORT | Summary of Care ---
Author Author [facility] Organization [facility] Address Unknown Phone Unavailable Encounter [facility](FIN) [id number] Date(s): 06/03/18 - 06/03/18 [facility] [address] [place] [address]- Attending Physician: Emeli Torres MD Vital Signs No [...] no reaction. 2Result Comment: fluzone high dose [fbc502]. Migrated from OBS ; Data migrated from [employer] on 10/08/2015. 3Result Comment: fluzone (>3 yrs.) [wjy111]. Migrated from OBS ; Data migrated from [employer] on 10/08/2015. 4Result Comment: done. Migrated from OBS ; Data migrated from [employer] on 10/08/2015. 5Result Comment: pneumovax 23 [cvx33]. Migrated from OBS VIS: Pneumovax 23: 06/11/09 ; Data migrated from [employer] on 10/08/2015. Procedures Procedure Date Related Diagnosis [...] 05/02/15 Completed Esophageal motility study9 06/06/14 Completed Hpedgljgtanjbqueckjghepmmt06 01/03/14 Completed Colonoscopy 2013 Completed Arthroscopy of knee 07/11/13 Completed Pneumococcal kwrzsdentjl15 10/17/12 Completed Cardiac catheterization Completed Cholecystectomy Completed Stevo fundoplication Completed PTCA - Percutaneous transluminal coronary Completed rpcsigaqvwq65 Radiofrequency ablation of nerve root of Completed [...] stenotic upper esophageal stricture s/p dilatation 11Pneumovax 292410 Social History Social History Type Response Substance Abuse Use: None. Exercise Exercise type: none. Alcohol Past, Type Liquor. Frequency: 1-2 times per year. Smoking Status Never smoker; Exposure to Tobacco Smoke None; Cigarette Smoking Last 365 Days No; Reg Smoking Cessation Counseling Yes entered on: 12/20/18 Assessment and Plan No data available for this section
--- OUTSIDE RECORDS SUMMARY | 2019-01-14 14:29 | XMS REPORT | Summary of Care ---
Author Author [facility] Organization [facility] Address Unknown Phone Unavailable Encounter HQ Phu(FIN) [id number] Date(s): 06/09/15 - 06/09/15 [facility] [address] [place] [address]- Discharge Diagnosis: Generalized headache Discharge Diagnosis: Hypertension Discharge Disposition: Home Attending Physician: Roger Jacome MD Vital Signs Most recent to 1 2 oldest [Reference Range]: Height 152.4 cm (06/09/15 11:55 AM) Most recent to 1 2 oldest [Reference Range]: Temperature Oral 98.2 DegF [96.4-99.1 DegF] (06/09/15 11:55 AM) Most recent to 1 2 oldest [Reference Range]: Blood Pressure 145/78 mmHg 180/108 mmHg [90-140/60-90 mmHg] *HI* *HI* (06/09/15 1:22 PM) (06/09/15 11:55 AM) Most recent to 1 2 oldest [Reference Range]: Respiratory Rate 18 BRMIN 20 BRMIN [14-20 BRMIN] (06/09/15 1:22 PM) (06/09/15 11:55 AM) Most recent to 1 2 oldest [Reference Range]: Peripheral Pulse 98 bpm 97 bpm Rate [60-100 bpm] (06/09/15 1:22 PM) (06/09/15 11:55 AM) Most recent to 1 2 oldest [Reference Range]: Weight 71.818 kg (06/09/15 11:55 AM) Most recent to 1 2 oldest [Reference Range]: Body Mass Index 30.92 m2 (06/09/15 11:55 AM) Problem List Condition Effective Dates Status Health Status Informant Allergic rhinitis1 Active Benign essential 02/01/13 Active hypertension2 Bereavement3 05/10/14 Resolved CAD (coronary artery Active disease)(Confirmed) Calcaneal spur4 08/15/13 Active 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 Depression, Active major(Confirmed) Diabetes mellitus Active type 2, controlled, without complications(Confir med) Gastroesophageal 02/01/13 Active reflux disease6 Mixed 02/01/13 Active hyperlipidemia7 Morbid obesity8 01/30/15 Active Osteoarthritis of 02/01/13 Active both knees9 Hmblkloyff93 02/15/13 Active Peripheral edema11 02/01/13 Active Peripheral Active neuropathy(Confirmed ) S/P PTCA Active (percutaneous transluminal coronary angioplasty)(Confirm ed) Left shoulder Active pain(Confirmed) Spinal stenosis of 02/01/13 Active lumbar ncuhfp93 Stricture of 05/16/13 Active arjmfolmj99 Temporomandibular Active joint disorder (TMJ)(Confirmed) 1Data migrated from [employer] on 02/02/15. 2Data migrated from [employer] on 02/02/15. 3Data migrated from [employer] on 02/02/15. 4Data migrated from [employer] on 02/02/15. 5Data migrated from [employer] on 02/02/15. 6Data migrated from [employer] on 02/02/15. 7Data migrated from [employer] on 02/02/15. 8Data migrated from [employer] on 03/13/15. 9Data migrated from [employer] on 02/02/15. 10Data migrated from [employer] on 02/02/15. 11Data migrated from [employer] on 02/02/15. 12Data migrated from [employer] on 02/02/15. 13Data migrated from [employer] on 02/02/15. Allergies, Adverse Reactions, Alerts Substance Reaction Severity Status angiotensin converting patient cannot remember reaction Active enzyme inhibitors1, 2 1Data migrated from [employer] on 04/05/15. Originally documented as BRITT INHIBITORS. Does not remember 2Data migrated from [employer] on 04/04/15. Originally documented as BRITT INHIBITORS. Does not remember Medications Saline Flush 0.9% 10 mL, Route: IVP, Drug Form: INJ, Dosing Weight 71.818, kg, PRN, PRN Line Flush , Start date: 06/09/15 12:34:00, Duration: 30 day, Stop date: 07/09/15 11:33:00 Start Date: 06/09/15 Stop Date: 06/09/15 Status: Discontinued Results No data available for this section Immunizations Vaccine Date Refusal Reason influenza virus vaccine, inactivated 06/05/15 Procedures Procedure Date Related Diagnosis Body Site Arthroscopy of knee 07/11/13 Cardiac catheterization Cholecystectomy PTCA - Percutaneous transluminal coronary angioplasty1 Radiofrequency ablation of nerve root of lumbar spine using fluoroscopic guidance Repair of rectovaginal fistula Suspension of bladder [id number] Social History Social History Type Response Substance Abuse Use: None. Exercise 1 Alcohol Past, Type Liquor. Frequency: 1-2 times per year. Smoking Status Never smoker; Exposure to Tobacco Smoke None; Cigarette Smoking Last 365 Days No; Reg Smoking Cessation Counseling Yes 1none Assessment and Plan No data available for this section
--- OUTSIDE RECORDS SUMMARY | 2019-01-14 14:29 | XMS REPORT | Summary of Care ---
Author Author [facility] Primary Care [facility] Organization [facility] Address Unknown Phone Unavailable Encounter HQ [employer]_erwin(FIN) [id number] Date(s): 06/04/18 - 06/05/18 [facility] [address] [place] [address] [phone] Vital Signs No data available for this [...] no reaction. 2Result Comment: fluzone high dose [ini115]. Migrated from OBS ; Data migrated from [employer] on 10/08/2015. 3Result Comment: fluzone (>3 yrs.) [ggz120]. Migrated from OBS ; Data migrated from [...] 05/02/15 Completed Esophageal motility study9 06/06/14 Completed Wyecdduazahjvexdwvlmhrhnfn98 01/03/14 Completed Colonoscopy 2013 Completed Arthroscopy of knee 07/11/13 Completed Pneumococcal sgawpcbqwye75 10/17/12 Completed Cardiac catheterization Completed Cholecystectomy Completed Stevo fundoplication Completed PTCA - Percutaneous transluminal coronary Completed qtattrbnnxd92 Radiofrequency ablation of nerve root of Completed [...] stenotic upper esophageal stricture s/p dilatation 11Pneumovax 260383 Social History Social History Type Response Substance Abuse Use: None. Exercise Exercise type: none. Alcohol Past, Type Liquor. Frequency: 1-2 times per year. Smoking Status Never smoker; Exposure to Tobacco Smoke None; Cigarette Smoking Last 365 Days No; Reg Smoking Cessation Counseling Yes entered on: 12/20/18 Assessment and Plan No data available for this section
--- OUTSIDE RECORDS SUMMARY | 2019-01-14 14:29 | XMS REPORT | Summary of Care ---
Author Author [facility] Primary Care [facility] Organization [facility] Address Unknown Phone Unavailable Encounter [employer](FIN) [id number] Date(s): 03/26/18 - 03/27/18 [facility] [address] [place] [address]- [phone] Vital Signs No data available for this [...] for Active immunization(Confirm ed) 1Data migrated from [employer] on 02/02/15. 2Data migrated from [employer] [...] Medications hydrochlorothiazide-losartan 12.5 mg-100 mg oral tablet See Instructions, # 90 tab, Refill(s) 1, TAKE 1 TABLET BY MOUTH DAILY, Pharmacy: [facility] [id number] Start Date: 03/28/18 Status: Ordered OneLineauch Ultra Blue Blood Glucose Test Strip Check [...] 10/18/13 Given 1Result Comment: fluzone high dose [cky730]. Migrated from OBS ; Data migrated from [employer] on 10/08/2015. 2Result Comment: fluzone (>3 yrs.) [ogn143]. Migrated from OBS ; Data migrated from [employer] on 10/08/2015. 3Result Comment: done. Migrated from OBS ; Data migrated from [employer] on 10/08/2015. 4Result Comment: pneumovax 23 [cvx33]. Migrated from OBS VIS: Pneumovax 23: 06/11/09 ; Data migrated from [employer] on 10/08/2015. Procedures Procedure Date Related Diagnosis [...] 05/02/15 Completed Esophageal motility study9 06/06/14 Completed Ikfbjjjvrnvywbjspnotpvnsab67 01/03/14 Completed Colonoscopy 2013 Completed Arthroscopy of knee 07/11/13 Completed Pneumococcal kkhqsinjahe60 10/17/12 Completed Cardiac catheterization Completed Cholecystectomy Completed Stevo fundoplication Completed PTCA - Percutaneous transluminal coronary Completed nwibqxdygpn27 Radiofrequency ablation of nerve root of Completed [...] stenotic upper esophageal stricture s/p dilatation 11Pneumovax [id number] Social History Social History Type Response Substance Abuse Use: None. Exercise Exercise type: none. Alcohol Past, Type Liquor. Frequency: 1-2 times per year. Smoking Status Never smoker; Exposure to Tobacco Smoke None; Cigarette Smoking Last 365 Days No; Reg Smoking Cessation Counseling Yes entered on: 02/16/18 Assessment and Plan No data available for this section
--- OUTSIDE RECORDS SUMMARY | 2019-01-14 14:29 | XMS REPORT | Summary of Care ---
Author Author [facility] Organization [facility] Address Unknown Phone Unavailable Encounter [employer](FIN) [id number] Date(s): 12/20/18 - 12/20/18 [facility] [address] [place] [address]- Discharge Disposition: Home or Self Care Attending Physician: Emeli Torres MD Vital Signs Most recent to 1 oldest [Reference Range]: Height 152.4 cm (12/20/18 9:41 AM) Temperature Oral 97.3 DegF [96.4-99.1 DegF] (12/20/18 9:41 AM) Blood Pressure 143/81 mmHg [90-140/60-90 mmHg] *HI* (12/20/18 9:41 AM) Respiratory Rate 16 BRMIN [14-20 BRMIN] (12/20/18 9:41 AM) Peripheral Pulse 68 bpm Rate [60-100 bpm] (12/20/18 9:41 AM) Weight 96.818 kg (12/20/18 9:41 AM) Body Mass Index 41.69 m2 (12/20/18 9:41 AM) Problem List Condition Effective Dates Status [...] BRITT INHIBITORS. Does not remember Medications No Known Medications Results No data available for this section [...] no reaction. 2Result Comment: fluzone high dose [kmq378]. Migrated from OBS ; Data migrated from [email or web address] on 10/08/2015. 3Result Comment: fluzone (>3 yrs.) [dgg978]. Migrated from OBS ; Data migrated from [email or web address] on 10/08/2015. 4Result Comment: done. Migrated from OBS ; Data migrated from [email or web address] on 10/08/2015. 5Result Comment: pneumovax 23 [cvx33]. Migrated from OBS VIS: Pneumovax 23: 06/11/09 ; Data migrated from [email or web address] on 10/08/2015. Procedures Procedure Date Related Diagnosis [...] 05/02/15 Completed Esophageal motility study9 06/06/14 Completed Iopmgxbkcljscjgtrmxterxvzx96 01/03/14 Completed Colonoscopy 2013 Completed Arthroscopy of knee 07/11/13 Completed Pneumococcal hmmfvfiuqjw25 10/17/12 Completed Cardiac catheterization Completed Cholecystectomy Completed Stevo fundoplication Completed PTCA - Percutaneous transluminal coronary Completed ntswottumee18 Radiofrequency ablation of nerve root of Completed [...] stenotic upper esophageal stricture s/p dilatation 11Pneumovax [id number] Social History Social History Type Response Substance Abuse Use: None. Exercise Exercise type: none. Alcohol Past, Type Liquor. Frequency: 1-2 times per year. Smoking Status Never smoker; Exposure to Tobacco Smoke None; Cigarette Smoking Last 365 Days No; Reg Smoking Cessation Counseling Yes entered on: 12/20/18 Assessment and Plan No data available for this section
--- OUTSIDE RECORDS SUMMARY | 2019-01-14 14:29 | XMS REPORT | Summary of Care ---
Author Author [facility] Primary Care [facility] Organization [facility] Address Unknown Phone Unavailable Encounter HQ [employer](FIN) [id number] Date(s): 02/24/18 - 02/25/18 [facility] [address], [address] [place] [address]- [phone] Vital Signs No data available for this [...] for Active immunization(Confirm ed) 1Data migrated from [employer] on 02/02/15. 2Data migrated from [employer] [...] as BRITT INHIBITORS. Does not remember Medications Lyrica 300 mg oral capsule 300 mg=1 cap, PO, Daily, # 90 cap, 1 Refill(s) Start Date: 02/25/18 Status: Ordered Results No data available for this section Immunizations Given and Recorded Vaccine Date Status Refusal Reason influenza virus vaccine, inactivated 04/28/17 Given influenza virus vaccine, inactivated 07/03/16 Given influenza virus vaccine, inactivated 06/05/15 Given influenza virus vaccine, inactivated1 07/05/14 Given influenza virus vaccine, inactivated2 07/26/13 Given Hx influenza vaccine-unspecified3 05/10/14 Given pneumococcal 23-valent vaccine4 10/18/13 Given 1Result Comment: fluzone high dose [[id number]]. Migrated from OBS ; Data migrated from [employer] on 10/08/2015. 2Result Comment: fluzone (>3 yrs.) [[id number]]. Migrated from OBS ; Data migrated from [...] 05/02/15 Completed Esophageal motility study9 06/06/14 Completed Huqloubkedzqtaqkygyzthtwxm04 01/03/14 Completed Colonoscopy 2013 Completed Arthroscopy of knee 07/11/13 Completed Pneumococcal idkonmmpxxt77 10/17/12 Completed Cardiac catheterization Completed Cholecystectomy Completed Stevo fundoplication Completed PTCA - Percutaneous transluminal coronary Completed sxaczugdxmx10 Radiofrequency ablation of nerve root of Completed [...] stenotic upper esophageal stricture s/p dilatation 11Pneumovax [id number] Social History Social History Type Response Substance Abuse Use: None. Exercise Exercise type: none. Alcohol Past, Type Liquor. Frequency: 1-2 times per year. Smoking Status Never smoker; Exposure to Tobacco Smoke None; Cigarette Smoking Last 365 Days No; Reg Smoking Cessation Counseling Yes entered on: 02/16/18 Assessment and Plan No data available for this section
--- OUTSIDE RECORDS SUMMARY | 2019-01-14 14:29 | XMS REPORT | Summary of Care ---
Author Author [facility] Primary Care [facility] Organization [facility] Address Unknown Phone Unavailable Encounter HQ Phu(FIN) [id number] Date(s): 12/23/18 - 12/24/18 [facility] [address] [place] [address]- Vital Signs No data available for this [...] no reaction. 2Result Comment: fluzone high dose [okf910]. Migrated from OBS ; Data migrated from [employer] on 10/08/2015. 3Result Comment: fluzone (>3 yrs.) [[id number]]. Migrated from OBS ; Data migrated from [...] 05/02/15 Completed Esophageal motility study9 06/06/14 Completed Visjsbfwfszzcokigttqjshrem64 01/03/14 Completed Colonoscopy 2013 Completed Arthroscopy of knee 07/11/13 Completed Pneumococcal wusmykbdkzd06 10/17/12 Completed Cardiac catheterization Completed Cholecystectomy Completed Stevo fundoplication Completed PTCA - Percutaneous transluminal coronary Completed Radiofrequency ablation of nerve root of Completed [...] stenotic upper esophageal stricture s/p dilatation 11Pneumovax 005121 Social History Social History Type Response Substance Abuse Use: None. Exercise Exercise type: none. Alcohol Past, Type Liquor. Frequency: 1-2 times per year. Smoking Status Never smoker; Exposure to Tobacco Smoke None; Cigarette Smoking Last 365 Days No; Reg Smoking Cessation Counseling Yes entered on: 12/20/18 Assessment and Plan No data available for this section
--- OUTSIDE RECORDS SUMMARY | 2019-01-14 14:29 | XMS REPORT | Summary of Care ---
Author Author [facility] Organization [facility] Address Unknown Phone Unavailable Encounter HQ Phu(FIN) [id number] Date(s): 06/07/15 - 06/07/15 [facility] [address] [place] [address] [facility] [phone] Discharge Disposition: Home Attending Physician: Tobin Cee DO Vital Signs No data available for this section Problem List Condition Effective Dates Status Health Status Informant Allergic rhinitis1 Active Benign essential 02/01/13 Active hypertension2 Bereavement3 05/10/14 Resolved CAD (coronary artery Active disease)(Confirmed) Calcaneal spur4 08/15/13 Active 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 Depression, Active major(Confirmed) Diabetes mellitus Active type 2, controlled, without complications(Confir med) Gastroesophageal 02/01/13 Active reflux disease6 HTN - Active Hypertension(Confirm ed) Mixed 02/01/13 Active hyperlipidemia7 Morbid obesity8 01/30/15 Active Need for Active prophylactic vaccination and inoculation against influenza(Confirmed) Osteoarthritis of 02/01/13 Active both knees9 Pnkwtoekwb78 02/15/13 Active Peripheral edema11 02/01/13 Active Peripheral Active neuropathy(Confirmed ) S/P PTCA Active (percutaneous transluminal coronary angioplasty)(Confirm ed) Left shoulder Active pain(Confirmed) Spinal stenosis of 02/01/13 Active lumbar uyyqnd66 Stricture of 05/16/13 Active uweykocuw54 Temporomandibular Active joint disorder (TMJ)(Confirmed) 1Data migrated [...] Repair of rectovaginal fistula Suspension of bladder 04633 Social History Social History Type Response Substance Abuse Use: None. Exercise 1 Alcohol Past, Type Liquor. Frequency: 1-2 times per year. Smoking Status Never smoker; Exposure to Tobacco Smoke None; Cigarette Smoking Last 365 Days No; Reg Smoking Cessation Counseling Yes 1none Assessment and Plan No data available for this section
--- OUTSIDE RECORDS SUMMARY | 2019-01-14 14:30 | XMS REPORT | Summary of Care ---
Author Author [facility] Organization [facility] Address Unknown Phone Unavailable Encounter [place](FIN) [id number] Date(s): 10/25/15 - 10/25/15 [facility] [address] [place] [address]- Discharge Disposition: Home Attending Physician: Last Iverson MD Referring Physician: Last Iverson MD Vital Signs No data available for this section Problem List Condition Effective Dates Status Health Status Informant Allergic rhinitis1 Active Allergic Active urticaria(Confirmed) Benign essential 02/01/13 Active hypertension2 Bereavement3 05/10/14 Resolved CAD (coronary artery Active disease)(Confirmed) Calcaneal spur4 08/15/13 Active 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 Depression, Active major(Confirmed) Diabetes mellitus Active type 2, controlled, without complications(Confir med) Gastroesophageal 02/01/13 Active reflux disease6 Mixed 02/01/13 Active hyperlipidemia7 Morbid obesity8 01/30/15 Active Need for Resolved prophylactic vaccination and inoculation against influenza(Confirmed) Osteoarthritis of 02/01/13 Active both knees9 Yacmlkjmyk02 02/15/13 Active Peripheral edema11 02/01/13 Active Peripheral Active neuropathy(Confirmed ) S/P PTCA Active (percutaneous transluminal coronary angioplasty)(Confirm ed) Seasonal allergic Active rhinitis(Confirmed) Left shoulder Active pain(Confirmed) Spinal stenosis of 02/01/13 Active lumbar akwpvm85 Stricture of 05/16/13 Active goifodpjz34 Temporomandibular Active joint disorder (TMJ)(Confirmed) 1Data migrated [...] [employer] on 04/05/15. Originally documented as BIRTT INHIBITORS. Does not remember 2Data migrated from [employer] on 04/04/15. Originally documented as BRITT INHIBITORS. Does not remember Medications No data available for this section Results No data available for this section Immunizations Vaccine Date Refusal Reason Hx influenza vaccine-unspecified1 05/10/14 influenza virus vaccine, inactivated 06/05/15 influenza virus vaccine, inactivated2 07/05/14 influenza virus vaccine, inactivated3 07/26/13 pneumococcal 23-valent vaccine4 10/18/13 1Result Comment: done. Migrated from OBS ; Data migrated from [employer] on 10/08/2015. 2Result Comment: fluzone high dose [[id number]]. Migrated from OBS ; Data migrated from [employer] on 10/08/2015. 3Result Comment: fluzone (>3 yrs.) [[id number]]. Migrated from OBS ; Data migrated from [...] Repair of rectovaginal fistula Suspension of bladder 96055 Social History Social History Type Response Substance Abuse Use: None. Exercise 1 Alcohol Past, Type Liquor. Frequency: 1-2 times per year. Smoking Status Never smoker; Exposure to Tobacco Smoke None; Cigarette Smoking Last 365 Days No; Reg Smoking Cessation Counseling Yes 1none Assessment and Plan No data available for this section
--- OUTSIDE RECORDS SUMMARY | 2019-01-14 14:30 | XMS REPORT | Summary of Care ---
Author Author [facility] Organization [facility] Address Unknown Phone Unavailable Encounter HQ Phu(FIN) [id number] Date(s): 11/24/16 - 11/24/16 [facility] [address] [place] [address]- [phone] Discharge Disposition: Home or Self Care Attending Physician: Emeli Torres MD Referring Physician: Emeli Torres MD Vital Signs No data available for this section Problem List Condition Effective Dates Status Health Status Informant Upper back pain on Active right side(Confirmed) Benign essential 02/01/13 Active hypertension(Confirm ed)1 CAD (coronary artery Active disease)(Confirmed) Calcaneal spur2 08/15/13 Active 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 Depression, Active major(Confirmed) Diabetes mellitus Active type 2, controlled, without complications(Confir med) Sebaceous Active cyst(Confirmed) Gastroesophageal 02/01/13 Active reflux disease(Confirmed)4 Hypercholesteremia(C Active onfirmed) Mixed 02/01/13 Active hyperlipidemia(Confi rmed)5 Morbid obesity6 01/30/15 Active Osteoarthritis of 02/01/13 Active both knees7 Osteopenia8 02/15/13 Active Peripheral edema9 02/01/13 Active Peripheral Active neuropathy(Confirmed ) S/P PTCA Active (percutaneous transluminal coronary angioplasty)(Confirm ed) Seasonal allergic Active rhinitis(Confirmed) Left shoulder Active pain(Confirmed) Spinal stenosis of 02/01/13 Active lumbar qbkjxi61 Stricture of 05/16/13 Active muonibmbb18 Temporomandibular Active joint disorder (TMJ)(Confirmed) Encounter for Active immunization(Confirm ed) 1Data migrated from [employer] on 02/02/15. 2Data migrated from [employer] on 02/02/15. 3Data migrated from [employer] on 02/02/15. 4Data migrated from [employer] on 02/02/15. 5Data migrated from [employer] on 02/02/15. 6Data migrated from [employer] on 03/13/15. 7Data migrated from [employer] on 02/02/15. 8Data migrated from [employer] on 02/02/15. 9Data migrated from [employer] on 02/02/15. 10Data migrated from [employer] on 02/02/15. 11Data migrated from [employer] on 02/02/15. Allergies, [...] and Recorded Vaccine Date Status Refusal Reason Hx influenza vaccine-unspecified1 05/10/14 Given influenza virus vaccine, inactivated 07/03/16 Given influenza virus vaccine, inactivated 06/05/15 Given influenza virus vaccine, inactivated2 07/05/14 Given influenza virus vaccine, inactivated3 07/26/13 Given pneumococcal 23-valent vaccine4 10/18/13 Given 1Result Comment: done. Migrated from OBS ; Data migrated from [employer] on 10/08/2015. 2Result Comment: fluzone high dose [[id number]]. Migrated from OBS ; Data migrated from [employer] on 10/08/2015. 3Result Comment: fluzone (>3 yrs.) [[id number]]. Migrated from OBS ; Data migrated from [employer] on 10/08/2015. 4Result Comment: pneumovax 23 [cvx33]. Migrated from OBS VIS: Pneumovax 23: 06/11/09 ; Data migrated from [employer] on 10/08/2015. Procedures Procedure Date Related Diagnosis Body Site Excision of mass from thigh 10/09/16 Esophageal motility study1 06/06/14 Esophagogastroduodenoscopy2 01/03/14 Colonoscopy 2014 Arthroscopy of knee 07/11/13 Cardiac catheterization Cholecystectomy Stevo fundoplication PTCA - Percutaneous transluminal coronary angioplasty3 Radiofrequency ablation of nerve root of lumbar spine using fluoroscopic guidance Repair of rectovaginal fistula Suspension of bladder 1Esophageal spasm c/w Nutcracker esophagus 2hiatal hernia, stenotic upper esophageal stricture s/p dilatation 52929 Social History Social History Type Response Substance Abuse Use: None. Exercise Exercise type: none. Alcohol Past, Type Liquor. Frequency: 1-2 times per year. Smoking Status Never smoker; Exposure to Tobacco Smoke None; Cigarette Smoking Last 365 Days No; Reg Smoking Cessation Counseling Yes Assessment and Plan No data available for this section
--- OUTSIDE RECORDS SUMMARY | 2019-01-14 14:30 | XMS REPORT | Summary of Care ---
Author Author [facility] Organization [facility] Address Unknown Phone Unavailable Encounter [employer](MARTIN) [phone] Date(s): 11/10/16 - 11/10/16 [facility] [address] [place] [address]- Discharge Disposition: Home or Self Care Attending Physician: Mary Sharp MD Referring Physician: Mary Sharp MD Vital Signs 1 2 3 Most recent to oldest [Reference Range]: 149.86 cm (11/05/16 12:50 PM) Height 97.9 DegF (11/05/16 12:50 PM) Temperature Oral [96.4-99.1 DegF] 147/68 mmHg *HI* (11/10/16 10:10 AM) 138/74 mmHg (11/10/16 9:55 AM) 150/85 mmHg *HI* (11/10/16 9:40 AM) Blood Pressure [90-140/60-90 mmHg] 18 BRMIN (11/10/16 10:10 AM) 15 BRMIN (11/10/16 9:55 AM) 16 BRMIN (11/10/16 9:40 AM) Respiratory Rate [14-20 BRMIN] 61 bpm (11/05/16 12:50 PM) Peripheral Pulse Rate [60-100 bpm] 95.909 kg (11/05/16 12:50 PM) Weight 42.71 m2 (11/05/16 12:50 PM) Body Mass Index Problem List Condition Effective Dates Status Health [...] pain(Confirmed) Spinal stenosis of 02/01/13 Active lumbar [id number] Stricture of 05/16/13 Active [id number] Temporomandibular Active joint disorder (TMJ)(Confirmed) Encounter for [...] as [employer]. Does not remember Medications sodium chloride 0.9% 1000 ml INJ 1,000 mL 1,000 mL, Rate: 25 ml/hr, Infuse over: 40 hr, Route: IV, Dosing Weight 95.909 kg , Total Volume: 1,000, Start date: 11/10/16 7:20:00 [employer], Duration: 1 day, Stop d ate: 11/11/16 7:19:00 [employer] Start Date: 11/10/16 Stop Date: 11/10/16 Status: Discontinued Results ELECTROLYTES Most recent to 1 oldest [Reference Range]: Sodium Lvl [135-145 140 mEq/L mEq/L] (11/05/16 1:06 PM) Potassium Lvl 4.1 mEq/L [3.5-5.1 mEq/L] (11/05/16 1:06 PM) Chloride Lvl [95-109 103 mEq/L mEq/L] (11/05/16 1:06 PM) CO2 [24-32 mEq/L] 31 mEq/L (11/05/16 1:06 PM) AGAP [10.0-20.0 10.1 mEq/L mEq/L] (11/05/16 1:06 PM) CHEM PANEL Most recent to 1 oldest [Reference Range]: Creatinine Lvl 1.10 mg/dL [0.50-1.40 mg/dL] (11/05/16 1:06 PM) eGFR 51 mL/min/1.73m2 1 *NA* (11/05/16 1:06 PM) BUN [7-22 mg/dL] 12 mg/dL (11/05/16 1:06 PM) Glucose Lvl [70-99 142 mg/dL mg/dL] *HI* (11/05/16 1:06 PM) Calcium Lvl 8.6 mg/dL [8.5-10.5 mg/dL] (11/05/16 1:06 PM) 1Result Comment: The eGFR is calculated using the [...] from the National Kid[employer] Disease Education Program ( NKDEP) which additionally recommends that when the eGFR is used in patients with extremes of body mass index for purposes of drug dosing, the eGFR should be mul tiplied by the estimated BMI. Immunizations Given and Recorded Vaccine Date Status Refusal Reason Hx influenza vaccine-unspecified1 05/10/14 Given influenza virus vaccine, inactivated 07/03/16 Given influenza virus vaccine, inactivated 06/05/15 Given influenza virus vaccine, inactivated2 07/05/14 Given influenza virus vaccine, inactivated3 07/26/13 Given pneumococcal 23-valent vaccine4 10/18/13 Given 1Result Comment: done. Migrated from OBS ; Data migrated from [employer] on 10/08/2015. 2Result Comment: fluzone high dose [[id number]]. Migrated from OBS ; Data migrated from [employer] on 10/08/2015. 3Result Comment: fluzone (>3 yrs.) [[id number]]. Migrated from OBS ; Data migrated from [employer] on 10/08/2015. 4Result Comment: pneumovax 23 [[id number]]. Migrated from OBS VIS: Pneumovax 23: 06/11/09 ; Data migrated from [employer] on 10/08/2015. Procedures Procedure Date Related Diagnosis Body Site Excision of mass from thigh 10/09/16 Esophageal motility study1 06/06/14 Esophagogastroduodenoscopy2 01/03/14 Colonoscopy 2013 Arthroscopy of knee 07/11/13 Cardiac catheterization Cholecystectomy Stevo fundoplication PTCA - Percutaneous transluminal coronary angioplasty3 Radiofrequency ablation of nerve root of lumbar spine using fluoroscopic guidance Repair of rectovaginal fistula Suspension of bladder 1Esophageal spasm c/w [place] esophagus 2hiatal hernia, stenotic upper esophageal stricture s/p dilatation [id number] Social History Social History Type Response Substance Abuse Use: None. Exercise Exercise type: none. Alcohol Past, Type Liquor. Frequency: 1-2 times per year. Smoking Status Never smoker; Exposure to Tobacco Smoke None; Cigarette Smoking Last 365 Days No; Reg Smoking Cessation Counseling Yes Assessment and Plan No data available for this section
[2019-01-14] MEDS ORDERED: LYRICA75 MG (14:55)
[2019-01-14] MEDS ORDERED: KETOROLAC TROMETHAMINE 60 MG/2 ML VIAL IM ONE (15:00)
[2019-01-14 15:04] VITALS: BP 139/80
== END 2019-01-14 15:06 | disposition home or self-care (01) ==
LOC: FSED 14:22
DX: M54.42 Lumbago with sciatica, left side (principal); I10 Essential (primary) hypertension; E78.00 Pure hypercholesterolemia, unspecified; Z95.5 Presence of coronary angioplasty implant and graft
CPT/HCPCS: 99282; J1885